=== PATIENT | female | born 1945 | race Caucasian/White ===

== ENCOUNTER 2018-01-28 07:02 | Day surgery (SDC) | payer MEDICARE, SELFPAY ==
[2018-01-28] VITALS (9 sets, daily range): BP systolic 94–121; BP diastolic 57–71; PULSE 60–72; RESP 10–16; TEMP 36–36.8; O2SAT 92–99; BMI 20.9
--- NOTE | 2018-01-28 07:56 | SUR.PREOP ---
pt requested to take her indomethacin for headaches, dr guerrero notified and was ok with patient taking her medication with water at 0755
--- NOTE | 2018-01-28 08:36 | PM.HP.1 ---
History of Present Illness Date Patient Seen: 01/28/18 Time Patient Seen: 08:37 Chief complaint: [id number] COLONOSCOPY Narrative: Very pleasant 72-year-old lady who presents for a screening colonoscopy. She has a personal history of colon polyps and a family history of colon cancer. She denies any problems or symptoms related to the function of her GI tract other than chronic constipation which has been ongoing for many years. She reports that she needs colonoscopy as part of a health maintenance program. Patient History Medical History CAD (coronary artery disease) (Acute) Colon polyps (Chronic ~1999) Glaucoma (Chronic ~2009) Headache (Chronic ~1982) Hearing deficit (Chronic) Hearing loss (Chronic ~1970) Mumps (Resolved ~1955) Surgical History Anesthesia (Resolved) Status post placement of bare metal coronary artery stent (Resolved ~2015) History of tonsillectomy Status post colonoscopy Family & Social History Family History: Reviewed 01/28/18 by Bhargavi Caballero MD Social History: household members none lives independently Yes Tobacco & Substance use: Smoking Status Never smoker alcohol intake never Meds Home Medications Medication Instructions Recorded Confirmed Type nitroglycerin [Nitrostat] 0.4 mg SUBLINGUAL #0 tab 12/04/15 History aspirin 81 mg PO QDAY #30 tab 12/20/15 01/28/18 History losartan 25 mg PO QDAY #90 tab 02/02/17 01/28/18 Rx atorvastatin 40 mg PO HS #90 tab 06/02/17 01/28/18 Rx buspirone 7.5 mg PO BID #180 tab 06/05/17 01/28/18 Rx indomethacin 25 mg capsule 25 mg PO TIDCC #270 cap 01/22/18 01/28/18 Rx varicella-zoster glycoE [id number] 0.5 ml IM ONCE #1 each 01/22/18 01/22/18 Rx adj(PF) 50 mcg/0.5 mL IM susp, kit Allergies Allergy/AdvReac Type Severity Reaction Status Date / Time No Known Allergies Allergy Uncoded 08/12/17 12:59 Review of Systems Review of Systems All systems reviewed & are unremarkable except as noted in HPI and below Exam Vital Signs (past 8 hours): - 01/28/18 07:23 Temperature 97.9 F Pulse Rate 62 Respiratory Rate 16 Blood Pressure 121/71 Pulse Oximetry 99 Oxygen Delivery Method Room Air Narrative Exam Narrative: Very pleasant well-nourished well-developed lady in no distress HEENT: Normocephalic and atraumatic, pupils equal round reactive to light accommodation with anicteric sclera Lungs: Clear to auscultation bilaterally Heart: Regular rate and rhythm without murmur or gallop Abdomen: Soft, nontender, active bowel sounds Extremities: Warm well perfused Assessment & Plan Plan: Assessment/Plan Narrative: Very pleasant lady with a personal history of colon polyps and family history colon cancer. She presents today for screening colonoscopy. We discussed risks and benefits of the procedure the patient's crest desire to complete it today
[2018-01-28] MEDS: fentaNYL 250 MCG/5 ML INJ IV (09:05)
[2018-01-28] MEDS: MIDAZOLAM 5 MG/5 ML VIAL 8 MG IV (09:06)
--- NOTE | 2018-01-28 09:31 | SUR.PHASEI ---
Opens finally open spontaneously but falls asleep very quickly. Denied headache and stomach problems.
--- NOTE | 2018-01-28 11:01 | PM.OP.1 ---
Operative Date/Time/Diagnoses Date of procedure: 01/28/18 Time of procedure: 11:01 Pre-op diagnosis: Personal history of colon polyps Family history of colon cancer Post-op diagnosis: same Procedure & Clinicians Procedure: Colonoscopy to the cecum Same procedure as scheduled: Yes Indications: Last colonoscopy 5 years ago Surgeon: Bhargavi Caballero Anesthesia Type: Sedation (Versed 8 mg; fentanyl 200 mcg) Operative Notes Findings: 1. Poor prep 2. No polyps or mass lesions 3. No AV malformations 4. Tortuous, lax, and elongated colon consistent with chronic constipation 5. Minimal diverticulosis limited to the sigmoid region 6. Grade 1 internal hemorrhoids Closure Type: not applicable Specimen(s): none sent Procedure in detail: After obtaining informed consent, the patient was brought to the GI suite and placed in the left lateral decubitus position on the examination table. After placement of appropriate monitors, the patient was given incremental doses of Versed and Fentanyl until an appropriate level of sedation was achieved. A time out was held per SCOAP protocol. A digital rectal examination was performed and did not reveal any masses or obstructing lesions. The colonoscope was gently passed into the patient's anus and the entire colon navigated to the level of the cecum with significant difficulty due to colon tortuosity and laxity. Multiple changes of position were required to reach the cecum. Once in the cecum, the scope was withdrawn being sure to go before and beyond all mucosal folds and prominences and get an excellent examination. The findings are noted above. At the level of the rectal vault, the scope was retroflexed and the internal anal canal was examined. The scope was straightened and air aspirated from the colon. The instrument was removed from the patient's body and the procedure was concluded. The patient was allowed to awaken from sedation without difficulty and taken to the post-anesthesia care unit in good condition. Complications: none Condition: stable Disposition: PACU Plan for aftercare: 1. Discharge to home 2. Plan for next colonoscopy in 5 years or as clinically indicated
== END 2018-01-28 10:30 | disposition home or self-care (01) ==
PROVIDERS: Family Provider Family Medicine; PCP Family Medicine; Visit Provider Surgery
PROC: 0DJD8ZZ Inspection of Lower Intestinal Tract, Via Natural or Artificial Opening Endoscopic (ICD-10-PCS; CPT 45378; principal; 2018-01-28 07:45)
DX: Z86.010 Personal history of colon polyps (principal); K57.30 Diverticulosis of large intestine without perforation or abscess without bleeding; K64.0 First degree hemorrhoids; Z80.0 Family history of malignant neoplasm of digestive organs; I25.10 Atherosclerotic heart disease of native coronary artery without angina pectoris
CPT/HCPCS: G0105; J2250; J3010

== ENCOUNTER → 2018-02-04 08:36 | Outpatient (CLI) | payer MEDICARE, SELFPAY ==
[2018-02-04 09:14] LABS: Add Manual Diff / Slide Review NO; Basophils Percent Auto 1.1 % (0-2); Eosinophils Percent Auto 2.4 % (2-4); Hematocrit 44.6 % (36-46); Hemoglobin 15.6 g/dL (12.0-16.0); Lymphocytes Percent Auto 29.4 % (25-40); Mean Corpuscular HGB Conc 35.1 % (30-36); Mean Corpuscular Volume 91.4 fL (80-100); Monocytes Percent Auto 7.8 % (3-14); Neutrophils Absolute Auto 4000 /uL (3000-5900); Neutrophils Percent Auto 59.3 % (50-75); Platelet Count 201 X10^3/uL (150-400); Red Blood Cell Count 4.88 X10^6/uL (4.0-5.2); Red Cell Distribution Width 13.4 % (11.6-14.8); White Blood Cell Count 6.8 X10^3/uL (4.5-11.0)
[2018-02-04 09:50] LABS: Alanine Aminotransferase 38 IU/L (9-52); Albumin 4.7 g/dL (3.5-5.0); Alkaline Phosphatase 62 U/L (38-126); Aspartate Aminotransferase 30 IU/L (14-36); Bilirubin Total 0.7 mg/dL (0.2-1.3); Blood Urea Nitrogen 20 mg/dL (7-17); Carbon Dioxide 33 mmol/L (22-32); Chloride 97 mmol/L (98-107); Cholesterol 139 mg/dL (140-199); Estimated Glomerular Filt Rate > 60.0 mL/min (>60); Globulin 2.4 g/dL (1.7-4.1); Glucose 104 mg/dL (80-110); HDL Cholesterol 72 mg/dL (40-60); HEMOLYSIS < 15 (0-50); LDL Cholesterol Calculated 58 mg/dL (<100); Potassium 5.2 mmol/L (3.4-5.1); Sodium 139 mmol/L (137-145); Total Protein 7.1 g/dL (6.3-8.2); Triglycerides 46 mg/dL (35-150)
== END ==
PROVIDERS: PCP Family Medicine; Visit Provider Family Medicine
DX: I25.10 Atherosclerotic heart disease of native coronary artery without angina pectoris (principal)
CPT/HCPCS: 36415; 80053; 80061; 85025

== ENCOUNTER → 2018-03-11 09:03 | Outpatient (CLI) | payer MEDICARE, SELFPAY ==
--- NOTE | 2018-03-11 09:05 | DI.MG.S_ITS ---
BILATERAL DIGITAL SCREENING MAMMOGRAM 3D/2D WITH CAD: 03/11/2018 CLINICAL: Routine screening. Family history of breast cancer. Comparison is made to exams dated: 12/18/2016 mammogram, 11/09/2014 mammogram, and 09/02/2012 mammogram - [facility]. The tissue of both breasts is extremely dense, which lowers the sensitivity of mammography. Current study was also evaluated with a Computer Aided Detection (CAD) system. There are benign calcifications in both breasts. No significant masses, calcifications, or other findings are seen in either breast. There has been no significant interval change. IMPRESSION: There is no mammographic evidence of malignancy. A 1 year screening mammogram is recommended. This exam was interpreted at Station ID: [id number]. NOTE: For mammograms, a report in lay terms will be sent to the patient. Approximately 15% of breast malignancies will not be visualized mammographically. In the management of a palpable breast mass, a negative mammogram must not discourage biopsy of a clinically suspicious lesion. Electronically Signed By: Rogerio landin/radha:03/11/2018 17:09:52 letter sent: Normal Exam ACR BI-RADS Category 2: Benign Finding(s) 3342F
== END ==
PROVIDERS: Family Provider Family Medicine; PCP Family Medicine; Visit Provider Family Medicine
DX: Z12.31 Encounter for screening mammogram for malignant neoplasm of breast (principal); Z80.3 Family history of malignant neoplasm of breast; Z13.820 Encounter for screening for osteoporosis; M85.851 Other specified disorders of bone density and structure, right thigh; Z78.0 Asymptomatic menopausal state; I25.10 Atherosclerotic heart disease of native coronary artery without angina pectoris
CPT/HCPCS: 77063; 77067; 77080

== ENCOUNTER 2018-11-25 11:32 | Emergency (ER) | payer MEDICARE, SELFPAY ==
[2018-11-25 11:35] VITALS: BP 160/81; PULSE 74; RESP 18; TEMP 36.7; O2SAT 98; BMI 22.4
[2018-11-25 11:43] VITALS: BP 151/78; BP 160/81; PULSE 74
--- NOTE | 2018-11-25 11:43 | DI.RAD.S_ITS ---
PROCEDURE: XR CHEST 1V INDICATIONS: chest pain TECHNIQUE: One view of the chest was acquired. COMPARISON: [facility], , CHEST 1 VIEW, 11/20/2015, 14:04. FINDINGS: Surgical changes and devices: None. Lungs and pleura: Lungs are clear. No pleural effusions or pneumothorax. Mediastinum: Mediastinal contours appear normal. Heart size is normal. Bones and chest wall: No suspicious bony lesions. Overlying soft tissues appear unremarkable. IMPRESSION: Normal for age, source of current chest pain symptoms is not seen. Dictated by: Jovanny Michael M.D. on 11/25/2018 at 12:02 Approved by: Jovanny Michael M.D. on 11/25/2018 at 12:02
--- NOTE | 2018-11-25 11:49 | ED.CHESTPAIN ---
HPI - Chest Pain General Chief Complaint: Chest Pain Stated Complaint: RN states cardiac symptoms Time Seen by Provider: 11/25/18 11:46 Source: patient Mode of arrival: ambulatory Limitations: no limitations History of Present Illness HPI narrative: Patient is a 73-year-old female who presents with bilateral arm numbness sometimes. She says it starts in her hands and moves after her shoulders in both sides. She is extremely worried because that she has had a heart attack in the past and she feels like a heart attack might be coming on. This has been ongoing for the last 2 weeks. At no time did she ever have any chest pain. When she had her previous heart attack she felt like there was a vise around her chest, this is completely different. she denies any shortness of breath with exertion, weakness, speech difficulty. she came in for to get checked out. Related Data Home Medications Medication Instructions Recorded Confirmed nitroglycerin [Nitrostat] 0.4 mg SUBLINGUAL PRN PRN #0 tab 12/04/15 11/25/18 aspirin 81 mg PO MOWEFR #30 tab 12/20/15 11/25/18 CoQ-10 1 cap PO DAILY 11/25/18 11/25/18 atorvastatin 40 mg PO BEDTIME 11/25/18 11/25/18 buspirone 5 mg PO QAM 11/25/18 11/25/18 buspirone 10 mg PO QPM 11/25/18 11/25/18 vitamin E 1 cap PO DAILY 11/25/18 11/25/18 Previous Rx's Medication Instructions Recorded indomethacin 25 mg capsule 25 mg PO TIDCC #270 cap 01/22/18 varicella-zoster glycoE [id number] 0.5 ml IM ONCE #1 each 01/22/18 adj(PF) 50 mcg/0.5 mL IM susp, kit losartan 25 mg tablet 25 mg PO DAILY #3 tab 02/04/18 Allergies Allergy/AdvReac Type Severity Reaction Status Date / Time No Known Allergies Allergy Uncoded 11/25/18 11:52 Review of Systems Review of Systems GENERAL: Denies chills, fatigue, malaise, fever, sweats, travel HEENT: Denies sinus pain, ear pain, sore throat, difficulty swallowing, neck pain RESPIRATORY: Denies dyspnea, cough, wheezing, hemoptysis, sputum. CARDIOVASCULAR: Denies chest pain, palpitations, orthopnea, edema GASTROINTESTINAL: Denies nausea, vomiting, abdominal pain, diarrhea, constipation, melena. : Denies dysuria, frequency, incontinence, hematuria, urinary retention, flank pain. MUSCULOSKELETAL: Denies weakness, joint pain, or bony pain SKIN: No rash, no erythema, no pruritus NEUROLOGIC: Tingling in both arms see HPI Denies weakness, dizziness, headache, numbness, change in speech, confusion PSYCHIATRIC: No concerning psychosocial issues. 12 point review of systems is negative except for those stated above and HPI [facility] Medical History CAD (coronary artery disease) (Acute) Colon polyps (Chronic ~1999) Glaucoma (Chronic ~2009) Headache (Chronic ~1982) Hearing deficit (Chronic) Hearing loss (Chronic ~1970) Mumps (Resolved ~1955) Social History marital status: household members: none lives independently: Yes education level: college occupational status: other (retired) Smoking Status: Never smoker alcohol intake: never substance use type: does not use Exam Initial Vital Signs Initial Vital Signs: Vital Signs Temperature 98.1 F 11/25/18 11:35 Pulse Rate 74 11/25/18 11:35 Respiratory Rate 18 11/25/18 11:35 Blood Pressure 160/81 H 11/25/18 11:35 Pulse Oximetry 98 11/25/18 11:35 GENERAL: Well-appearing, well-nourished and in no acute distress. HEENT: Head atraumatic,EOMI, pupils reactive, face symmetric, moist mucous membranes CARDIOVASCULAR: Regular rate and rhythm without murmurs, rubs or gallops. RESPIRATORY: Breath sounds equal bilaterally, no wheezes rales or rhonchi. ABDOMEN: Soft, nontender. Normoactive bowel sounds all 4 quadrants. No guarding or rebound. : No CVA tenderness EXTREMITIES: Normal range of motion, no clubbing or edema. Neurovascularly intact NEUROLOGICAL: Alert and oriented x4.Normal gait and speech. Cranial nerves II through XII grossly intact. Mate Chief strength equal bilaterally. Good finger-nose good heel to earl. SKIN: Warm, dry, no laceration, no petechiae, no rashes or lesions. Scores HEART Score Heart Score history: Slightly Suspicious Heart Score EKG: Normal Heart Score Age: > or = 65 years old Heart Score risk factors: > 3 risk factors or hx of atherosclerotic disease Heart Score troponin: < or = to normal limit Heart Score Total: 4 NIH Stroke Scale Level of Conciousness: Alert, keenly responsive Ask month/age: Answers both questions correctly. Open/close eyes, close hand: Performs both tasks correctly Best gaze horizontal: Normal Visual cevallos: No visual loss Facial palsy: Normal symetrical movement Left arm drift: No drift for full 10 sec Right arm drift: No drift for full 10 sec Left leg drift: No drift for full 10 sec Right leg drift: No drift for full 10 sec Limb ataxia: Absent Sensory on face/arms/legs: Normal, no sensory loss Best language: No aphasia, normal Dysarthria: Normal Extinction or inattention: No abnormality Total NIH Stroke scale score: 0 Course Orders Ordered: ED Orders 11/25/18 11:43 XR chest 1V Stat Complete Blood Count AUTO DIFF Stat Comprehensive Metabolic Panel Stat Lipase Stat Partial Thromboplastin Time Stat Prothrombin Time INR Stat Troponin & CK Cardiac Panel Stat EKG-12 Lead Stat Vital Signs - 8 hr 11/25/18 11:35 11/25/18 11:43 11/25/18 12:00 Temperature 98.1 F Pulse Rate 74 74 65 Respiratory Rate 18 19 Blood Pressure 160/81 H Blood Pressure [Left Arm] 160/81 H Blood Pressure [Right Arm] 151/78 H 142/65 H Pulse Oximetry 98 96 11/25/18 12:52 Temperature 98.3 F Pulse Rate 67 Respiratory Rate 19 Blood Pressure 116/62 Blood Pressure [Left Arm] Blood Pressure [Right Arm] Pulse Oximetry 99 MDM - Chest Pain Lab Data Attestation: I reviewed the patient's lab results. Result diagrams: 11/25/18 11:43 11/25/18 11:43 Lab Results 11/25/18 11/25/18 11/25/18 Range/Units 11:43 11:43 11:43 WBC 7.1 (4.5-11.0) X10^3/uL RBC 4.77 (4.0-5.2) X10^6/uL Hgb 15.2 (12.0-16.0) g/dL Hct 43.9 (36-46) % MCV 92.1 (80-100) fL MCH 31.9 (26-34) PG MCHC 34.6 (30-36) % RDW 13.8 (11.6-14.8) % Plt Count 182 (150-400) X10^3/uL Neut % (Auto) 67.2 (50-75) % Lymph % (Auto) 24.3 L (25-40) % [place] % (Auto) 6.7 (3-14) % Eos % (Auto) 1.0 L (2-4) % Baso % (Auto) 0.8 (0-2) % Neut # (Auto) 4800 (3160-1779) /uL Lymph # (Auto) 1700 (3608-6854) /uL [place] # (Auto) 500 (0-900) /uL Eos # (Auto) 100 (0-450) /uL Baso # (Auto) 100 (0-100) /uL PT 11.6 (10.1-12.7) SECONDS INR 1.0 (0.9-1.3) APTT 29 (26.4-36.2) SECONDS Sodium 139 (137-145) mmol/L Potassium 4.3 (3.4-5.1) mmol/L Chloride 102 (98-107) mmol/L Carbon Dioxide 27 (22-32) mmol/L BUN 17 (7-17) mg/dL Creatinine 0.70 (0.52-1.04) mg/dL Estimated GFR > 60.0 (>60) mL/min BUN/Creatinine Ratio 24.3 H (6-22) Glucose 129 H (80-110) mg/dL Calcium 9.8 (8.4-10.2) mg/dL Total Bilirubin 0.7 (0.2-1.3) mg/dL AST 28 (14-36) IU/L ALT 34 (9-52) IU/L Alkaline Phosphatase 57 (38-126) U/L Total Creatine Kinase 67 (30-135) U/L CK-MB (CK-2) TNP CK-MB (CK-2) Rel Index TNP Troponin I < 0.012 (0.01-0.034) ng/mL Total Protein 7.3 (6.3-8.2) g/dL Albumin 4.6 (3.5-5.0) g/dL Globulin 2.7 (1.7-4.1) g/dL Albumin/Globulin Ratio 1.7 (1.0-2.8) Lipase 224 (23-300) U/L Imaging Data Chest x-ray: Radiologist's impression: PROCEDURE: XR CHEST 1V INDICATIONS: chest pain TECHNIQUE: One view of the chest was acquired. COMPARISON: [facility], , CHEST 1 VIEW, 11/20/2015, 14:04. FINDINGS: Surgical changes and devices: None. Lungs and pleura: Lungs are clear. No pleural effusions or pneumothorax. Mediastinum: Mediastinal contours appear normal. Heart size is normal. Bones and chest wall: No suspicious bony lesions. Overlying soft tissues appear unremarkable. IMPRESSION: Normal for age, source of current chest pain symptoms is not seen. Dictated by: Jovanny Michael M.D. on 11/25/2018 at 12:02 ECG Data Attestation: I personally reviewed and interpreted this ECG as follows: Prior ECG tracings: available for review Interpretation: Normal sinus rhythm rate 69 P are interval 120 be improved from previous there are no to ST elevations or T-wave inversion. Previously Seen T-wave inversions in precordial leads. MDM Narrative Medical decision making narrative: At this time patient's symptoms really are not concerning for cardiac or stroke. Her EKG is significantly improved from when she did have her [place]. She has a negative troponin with symptoms ongoing for 2 weeks. I did suggest that she touch base with her neonatal nurse practitioner and have a stress test. She has been taking her medications regularly. At this time I see no indication for any further imaging or workup Discharge Plan Departure Patient Disposition: Home Clinical Impression: Atypical chest pain Discharge Date/Time: 11/25/18 12:54 Interventions: ED Discharge Assessment Last Done: 11/25/18 12:52 Instructions: DI for Atypical Chest Pain Activity Restrictions/Additional Instructions: *You have been diagnosed with atypical chest pain *What to do: At this time her blood EKG and chest x-ray are all reassuring. However I still recommend that he follow up with her PCP and her neonatal nurse practitioner for further evaluation and possible further cardiac testing. *Continue to take medications as directed *Follow up with your primary care provider in 2-3 days *Return to ER if you should have chest pain, shortness of breath, heart palpitation or any new, worsening or concerning symptoms Prescriptions: No Action nitroglycerin [Nitrostat] 0.4 MG tablet, sublingual 0.4 mg Sublingual PRN PRN (Reason: Chest Pain) Qty: 0 RF: 0 aspirin 81 MG tablet,delayed release (DR/EC) 81 mg PO MOWEFR Qty: 30 RF: 0 losartan 25 mg tablet 25 mg PO DAILY Qty: 3 RF: 0 varicella-zoster [id number] (PF) [Shingrix (PF)] 50 mcg/0.5 mL suspension for reconstitution 0.5 ml IM ONCE Qty: 1 RF: 1 indomethacin 25 mg capsule 25 mg PO TIDCC Qty: 270 RF: 3 buspirone 15 mg tablet 5 mg PO QAM RF: 0 atorvastatin 40 mg tablet 40 mg PO BEDTIME RF: 0 buspirone 15 mg tablet 10 mg PO QPM RF: 0 CoQ-10 1 cap PO DAILY RF: 0 vitamin E 1 cap PO DAILY RF: 0 Referrals: Jean Marie Marrufo MD [Non-Staff] - Trudy Salvador DO [Primary Care Provider] -
[2018-11-25 11:52] LABS: Add Manual Diff / Slide Review NO; Basophils Absolute Auto 100 /uL (0-100); Basophils Percent Auto 0.8 % (0-2); Eosinophils Absolute Auto 100 /uL (0-450); Hematocrit 43.9 % (36-46); Hemoglobin 15.2 g/dL (12.0-16.0); Lymphocytes Absolute Auto 1700 /uL (1100-4500); Lymphocytes Percent Auto 24.3 % (25-40); Mean Corpuscular HGB Conc 34.6 % (30-36); Mean Corpuscular Hemoglobin 31.9 PG (26-34); Mean Corpuscular Volume 92.1 fL (80-100); Monocytes Absolute Auto 500 /uL (0-900); Monocytes Percent Auto 6.7 % (3-14); Neutrophils Absolute Auto 4800 /uL (1500-7000); Neutrophils Percent Auto 67.2 % (50-75); Platelet Count 182 X10^3/uL (150-400); Red Blood Cell Count 4.77 X10^6/uL (4.0-5.2); Red Cell Distribution Width 13.8 % (11.6-14.8); White Blood Cell Count 7.1 X10^3/uL (4.5-11.0)
--- NOTE | 2018-11-25 11:56 | ED_ITS ---
HPI - Chest Pain General Chief Complaint: Chest Pain Stated Complaint: RN states cardiac symptoms Time Seen by Provider: 11/25/18 11:46 Source: patient Mode of arrival: ambulatory Limitations: no limitations History of Present Illness HPI narrative: Patient is a 73-year-old female who presents with bilateral arm n umbness sometimes. She says it starts in her hands and moves after her shoulders in both sides. She is extremely worried because that she has had a heart attack in the past and she feels like a heart attack might be coming on. This has been ongoing for the last 2 weeks. At no time did she ever have any chest pain. When she had her previous heart attack she felt like there was a vise around her chest, this is completely different. she denies any shortness of breath with exertion, weakness, speech difficulty. she came in for to get checked out. Related Data Home Medications Medication Instructions Recorded Confirmed nitroglycerin [Nitrostat] 0.4 mg SUBLINGUAL PRN PRN #0 tab 12/04/15 11/25/18 aspirin 81 mg PO MOWEFR #30 tab 12/20/15 11/25/18 CoQ-10 1 cap PO DAILY 11/25/18 11/25/18 atorvastatin 40 mg PO BEDTIME 11/25/18 11/25/18 buspirone 5 mg PO QAM 11/25/18 11/25/18 buspirone 10 mg PO QPM 11/25/18 11/25/18 vitamin E 1 cap PO DAILY 11/25/18 11/25/18 Previous Rx's Medication Instructions Recorded indomethacin 25 mg capsule 25 mg PO TIDCC #270 cap 01/22/18 varicella-zoster glycoE [id number] 0.5 ml IM ONCE #1 each 01/22/18 adj(PF) 50 mcg/0.5 mL IM susp, kit losartan 25 mg tablet 25 mg PO DAILY #3 tab 02/04/18 Allergies Allergy/AdvReac Type Severity Reaction Status Date / Time No Known Allergies Allergy Uncoded 11/25/18 11:52 Review of Systems Review of Systems GENERAL: Denies chills, fatigue, malaise, fever, sweats, travel HEENT: Denies sinus pain, ear pain, sore throat, difficulty swallowing, neck pain RESPIRATORY: Denies dyspnea, cough, wheezing, hemoptysis, sputum. CARDIOVASCULAR: Denies chest pain, palpitations, orthopnea, edema GASTROINTESTINAL: Denies nausea, vomiting, abdominal pain, diarrhea, constipation, melena. : Denies dysuria, frequency, incontinence, hematuria, urinary retention, flank pain. MUSCULOSKELETAL: Denies weakness, joint pain, or bony pain SKIN: No rash, no erythema, no pruritus NEUROLOGIC: Tingling in both arms see HPI Denies weakness, dizziness, headache, numbness, change in speech, confusion PSYCHIATRIC: No concerning psychosocial issues. 12 point review of systems is negative except for those stated above and HPI FORMERLY [facility], [facility] Medical History CAD (coronary artery disease) (Acute) Colon polyps (Chronic ~1999) Glaucoma (Chronic ~2009) Headache (Chronic ~1982) Hearing deficit (Chronic) Hearing loss (Chronic ~1970) Mumps (Resolved ~1955) Social History marital status: household members: none lives independently: Yes education level: college occupational status: other (retired) Smoking Status: Never smoker alcohol intake: never substance use type: does not use Exam Initial Vital Signs Initial Vital Signs: Vital Signs Temperature 98.1 F 11/25/18 11:35 Pulse Rate 74 11/25/18 11:35 Respiratory Rate 18 11/25/18 11:35 Blood Pressure 160/81 H 11/25/18 11:35 Pulse Oximetry 98 11/25/18 11:35 GENERAL: Well-appearing, well-nourished and in no acute distress. HEENT: Head atraumatic,EOMI, pupils reactive, face symmetric, moist mucous membranes CARDIOVASCULAR: Regular rate and rhythm without murmurs, rubs or gallops. RESPIRATORY: Breath sounds equal bilaterally, no wheezes rales or rhonchi. ABDOMEN: Soft, nontender. Normoactive bowel sounds all 4 quadrants. No guarding or rebound. : No CVA tenderness EXTREMITIES: Normal range of motion, no clubbing or edema. Neurovascularly intact NEUROLOGICAL: Alert and oriented x4.Normal gait and speech. Cranial nerves II through XII grossly intact. Crossword Puzzle Maker strength equal bilaterally. Good finger-nose good heel to earl. SKIN: Warm, dry, no laceration, no petechiae, no rashes or lesions. Scores HEART Score Heart Score history: Slightly Suspicious Heart Score EKG: Normal Heart Score Age: > or = 65 years old Heart Score risk factors: > 3 risk factors or hx of atherosclerotic disease Heart Score troponin: < or = to normal limit Heart Score Total: 4 NIH Stroke Scale Level of Conciousness: Alert, keenly responsive Ask month/age: Answers both questions correctly. Open/close eyes, close hand: Performs both tasks correctly Best gaze horizontal: Normal Visual cevallos: No visual loss Facial palsy: Normal symetrical movement Left arm drift: No drift for full 10 sec Right arm drift: No drift for full 10 sec Left leg drift: No drift for full 10 sec Right leg drift: No drift for full 10 sec Limb ataxia: Absent Sensory on face/arms/legs: Normal, no sensory loss Best language: No aphasia, normal Dysarthria: Normal Extinction or inattention: No abnormality Total NIH Stroke scale score: 0 Course Orders Ordered: ED Orders 11/25/18 11:43 XR chest 1V Stat Complete Blood Count AUTO DIFF Stat Comprehensive Metabolic Panel Stat Lipase Stat Partial Thromboplastin Time Stat Prothrombin Time INR Stat Troponin & CK Cardiac Panel Stat EKG-12 Lead Stat Vital Signs - 8 hr 11/25/18 11:35 11/25/18 11:43 11/25/18 12:00 Temperature 98.1 F Pulse Rate 74 74 65 Respiratory Rate 18 19 Blood Pressure 160/81 H Blood Pressure [Left Arm] 160/81 H Blood Pressure [Right Arm] 151/78 H 142/65 H Pulse Oximetry 98 96 11/25/18 12:52 Temperature 98.3 F Pulse Rate 67 Respiratory Rate 19 Blood Pressure 116/62 Blood Pressure [Left Arm] Blood Pressure [Right Arm] Pulse Oximetry 99 MDM - Chest Pain Lab Data Attestation: I reviewed the patient's lab results. Result diagrams: 11/25/18 11:43 11/25/18 11:43 Lab Results 11/25/18 11/25/18 11/25/18 Range/Units 11:43 11:43 11:43 WBC 7.1 (4.5-11.0) X10^3/uL RBC 4.77 (4.0-5.2) X10^6/uL Hgb 15.2 (12.0-16.0) g/dL Hct 43.9 (36-46) % MCV 92.1 (80-100) fL MCH 31.9 (26-34) PG MCHC 34.6 (30-36) % RDW 13.8 (11.6-14.8) % Plt Count 182 (150-400) X10^3/uL Neut % (Auto) 67.2 (50-75) % Lymph % (Auto) 24.3 L (25-40) % [place] % (Auto) 6.7 (3-14) % Eos % (Auto) 1.0 L (2-4) % Baso % (Auto) 0.8 (0-2) % Neut # (Auto) 4800 (1275-5403) /uL Lymph # (Auto) 1700 (5887-6727) /uL [place] # (Auto) 500 (0-900) /uL Eos # (Auto) 100 (0-450) /uL Baso # (Auto) 100 (0-100) /uL PT 11.6 (10.1-12.7) SECONDS INR 1.0 (0.9-1.3) APTT 29 (26.4-36.2) SECONDS Sodium 139 (137-145) mmol/L Potassium 4.3 (3.4-5.1) mmol/L Chloride 102 (98-107) mmol/L Carbon Dioxide 27 (22-32) mmol/L BUN 17 (7-17) mg/dL Creatinine 0.70 (0.52-1.04) mg/dL Estimated GFR > 60.0 (>60) mL/min BUN/Creatinine Ratio 24.3 H (6-22) Glucose 129 H (80-110) mg/dL Calcium 9.8 (8.4-10.2) mg/dL Total Bilirubin 0.7 (0.2-1.3) mg/dL AST 28 (14-36) IU/L ALT 34 (9-52) IU/L Alkaline Phosphatase 57 (38-126) U/L Total Creatine Kinase 67 (30-135) U/L CK-MB (CK-2) TNP CK-MB (CK-2) Rel Index TNP Troponin I < 0.012 (0.01-0.034) ng/mL Total Protein 7.3 (6.3-8.2) g/dL Albumin 4.6 (3.5-5.0) g/dL Globulin 2.7 (1.7-4.1) g/dL Albumin/Globulin Ratio 1.7 (1.0-2.8) Lipase 224 (23-300) U/L Imaging Data Chest x-ray: Radiologist's impression: PROCEDURE: XR CHEST 1V INDICATIONS: chest pain TECHNIQUE: One view of the chest was acquired. COMPARISON: [facility], , CHEST 1 VIEW, 11/20/2015, 14:04. FINDINGS: Surgical changes and devices: None. Lungs and pleura: Lungs are clear. No pleural effusions or pneumothorax. Mediastinum: Mediastinal contours appear normal. Heart size is normal. Bones and chest wall: No suspicious bony lesions. Overlying soft tissues appear unremarkable. IMPRESSION: Normal for age, source of current chest pain symptoms is not seen. Dictated by: Jovanny Michael M.D. on 11/25/2018 at 12:02 ECG Data Attestation: I personally reviewed and interpreted this ECG as follows: Prior ECG tracings: available for review Interpretation: Normal sinus rhythm rate 69 P are interval 120 be improved from previous there are no to ST elevations or T-wave inversion. Previously Seen T- wave inversions in precordial leads. MDM Narrative Medical decision making narrative: At this time patient's symptoms really are not concerning for cardiac or stroke. Her EKG is significantly improved from when she did have her IL. She has a negative troponin with symptoms ongoing for 2 weeks. I did suggest that she touch base with her charge gang weigher and have a stress test. She has been taking her medications regularly. At this time I see no indication for any further imaging or workup Discharge Plan Departure Patient Disposition: Home Clinical Impression: Atypical chest pain Discharge Date/Time: 11/25/18 12:54 Interventions: ED Discharge Assessment Last Done: 11/25/18 12:52 Instructions: DI for Atypical Chest Pain Activity Restrictions/Additional Instructions: *You have been diagnosed with atypical chest pain *What to do: At this time her blood EKG and chest x-ray are all reassuring. However I still recommend that he follow up with her PCP and her charge gang weigher for further evaluation and possible further cardiac testing. *Continue to take medications as directed *Follow up with your primary care provider in 2-3 days *Return to ER if you should have chest pain, shortness of breath, heart palpitation or any new, worsening or concerning symptoms Prescriptions: No Action nitroglycerin [Nitrostat] 0.4 MG tablet, sublingual 0.4 mg Sublingual PRN PRN (Reason: Chest Pain) Qty: 0 RF: 0 aspirin 81 MG tablet,delayed release (DR/EC) 81 mg PO MOWEFR Qty: 30 RF: 0 losartan 25 mg tablet 25 mg PO DAILY Qty: 3 RF: 0 varicella-zoster [id number] (PF) [Shingrix (PF)] 50 mcg/0.5 mL suspension for reconstitution 0.5 ml IM ONCE Qty: 1 RF: 1 indomethacin 25 mg capsule 25 mg PO TIDCC Qty: 270 RF: 3 buspirone 15 mg tablet 5 mg PO QAM RF: 0 atorvastatin 40 mg tablet 40 mg PO BEDTIME RF: 0 buspirone 15 mg tablet 10 mg PO QPM RF: 0 CoQ-10 1 cap PO DAILY RF: 0 vitamin E 1 cap PO DAILY RF: 0 Referrals: Jean Marie Marrufo MD [Non-Staff] - Trudy Salvador DO [Primary Care Provider] -
[2018-11-25 11:58] LABS: Prothrombin Time 11.6 SECONDS (10.1-12.7)
[2018-11-25 12:00] VITALS: BP 142/65; PULSE 65; RESP 19; O2SAT 96
[2018-11-25 12:00] LABS: PTT Partial Thromboplastin Tim 29 SECONDS (26.4-36.2)
[2018-11-25 12:07] LABS: Alanine Aminotransferase 34 IU/L (9-52); Albumin 4.6 g/dL (3.5-5.0); Albumin Globulin Ratio 1.7 (1.0-2.8); Alkaline Phosphatase 57 U/L (38-126); Aspartate Aminotransferase 28 IU/L (14-36); BUN Creatinine Ratio 24.3 (6-22); Bilirubin Total 0.7 mg/dL (0.2-1.3); Blood Urea Nitrogen 17 mg/dL (7-17); Calcium 9.8 mg/dL (8.4-10.2); Carbon Dioxide 27 mmol/L (22-32); Chloride 102 mmol/L (98-107); Creatine Kinase 67 U/L (30-135); Estimated Glomerular Filt Rate > 60.0 mL/min (>60); Globulin 2.7 g/dL (1.7-4.1); Glucose 129 mg/dL (80-110); HEMOLYSIS < 15 (0-50); Lipase 224 U/L (23-300); Potassium 4.3 mmol/L (3.4-5.1); Sodium 139 mmol/L (137-145); Total Protein 7.3 g/dL (6.3-8.2)
[2018-11-25 12:18] LABS: Troponin I < 0.012 ng/mL (0.01-0.034)
[2018-11-25 12:52] VITALS: BP 116/62; PULSE 67; RESP 19; TEMP 36.8; O2SAT 99
== END 2018-11-25 12:54 | disposition home or self-care (01) ==
PROVIDERS: Emergency Provider Emergency Medicine; Family Provider Family Medicine; PCP Family Medicine
DX: R07.89 Other chest pain (principal); I25.2 Old myocardial infarction
CPT/HCPCS: 36415; 36591; 71045; 80053; 82550; 83690; 84484; 85025; 85610; 85730; 93005; 99283; 99285

== ENCOUNTER → 2019-02-24 07:31 | Outpatient (CLI) | payer MEDICARE, SELFPAY ==
[2019-02-24 08:41] LABS: Add Manual Diff / Slide Review NO; Basophils Absolute Auto 100 /uL (0-100); Basophils Percent Auto 1.4 % (0-2); Eosinophils Absolute Auto 100 /uL (0-450); Eosinophils Percent Auto 1.7 % (2-4); Hemoglobin 15.3 g/dL (12.0-16.0); Lymphocytes Absolute Auto 1500 /uL (1100-4500); Lymphocytes Percent Auto 27.6 % (25-40); Mean Corpuscular HGB Conc 34.8 % (30-36); Mean Corpuscular Hemoglobin 32.5 PG (26-34); Mean Corpuscular Volume 93.4 fL (80-100); Monocytes Absolute Auto 400 /uL (0-900); Neutrophils Absolute Auto 3400 /uL (1500-7000); Neutrophils Percent Auto 61.3 % (50-75); Platelet Count 175 X10^3/uL (150-400); Red Blood Cell Count 4.71 X10^6/uL (4.0-5.2); Red Cell Distribution Width 13.7 % (11.6-14.8); White Blood Cell Count 5.5 X10^3/uL (4.5-11.0)
[2019-02-24 09:01] LABS: Alanine Aminotransferase 27 IU/L (9-52); Albumin 4.5 g/dL (3.5-5.0); Albumin Globulin Ratio 1.8 (1.0-2.8); Alkaline Phosphatase 52 U/L (38-126); Aspartate Aminotransferase 33 IU/L (14-36); BUN Creatinine Ratio 28.8 (6-22); Bilirubin Total 0.7 mg/dL (0.2-1.3); Blood Urea Nitrogen 23 mg/dL (7-17); Calcium 9.6 mg/dL (8.4-10.2); Carbon Dioxide 32 mmol/L (22-32); Chloride 99 mmol/L (98-107); Cholesterol 129 mg/dL (140-199); Estimated Glomerular Filt Rate > 60.0 mL/min (>60); Globulin 2.5 g/dL (1.7-4.1); Glucose 98 mg/dL (80-110); HDL Cholesterol 61 mg/dL (40-60); HEMOLYSIS < 15 (0-50); LDL Cholesterol Calculated 60 mg/dL (<100); Potassium 4.4 mmol/L (3.4-5.1); Sodium 138 mmol/L (137-145); Triglycerides 38 mg/dL (35-150)
== END ==
PROVIDERS: PCP Family Medicine; Visit Provider Family Medicine
DX: E78.5 Hyperlipidemia, unspecified (principal); I10 Essential (primary) hypertension
CPT/HCPCS: 36415; 80053; 80061; 84443; 85025

== ENCOUNTER → 2019-04-14 08:58 | Outpatient (CLI) | payer MEDICARE, SELFPAY ==
--- NOTE | 2019-04-14 08:59 | DI.MG.S_ITS ---
BILATERAL DIGITAL SCREENING MAMMOGRAM 3D/2D WITH CAD: 04/14/2019 CLINICAL: Routine screening. Family history of breast cancer. Comparison is made to exams dated: 12/18/2016 mammogram, 11/09/2014 mammogram, and 09/02/2012 mammogram - [facility]. The tissue of both breasts is extremely dense, which lowers the sensitivity of mammography. Current study was also evaluated with a Computer Aided Detection (CAD) system. There is an irregular asymmetry with a circumscribed margin in the left breast posterior depth central to the nipple seen on the craniocaudal view only. This is increased in size. No other significant masses, calcifications, or other findings are seen in either breast. IMPRESSION: INCOMPLETE: NEEDS ADDITIONAL IMAGING EVALUATION The irregular asymmetry in the left breast is indeterminate. Additional views with possible ultrasound are recommended. This exam was interpreted at Station ID: [id number]. NOTE: For mammograms, a report in lay terms will be sent to the patient. Approximately 15% of breast malignancies will not be visualized mammographically. In the management of a palpable breast mass, a negative mammogram must not discourage biopsy of a clinically suspicious lesion. Electronically Signed By: Swathi brewer/radha:04/14/2019 11:46:56 letter sent: Additional Imaging Needed ACR BI-RADS Category 0: Incomplete 3340F
== END ==
PROVIDERS: PCP Family Medicine; Visit Provider Family Medicine
DX: Z12.31 Encounter for screening mammogram for malignant neoplasm of breast (principal); Z80.3 Family history of malignant neoplasm of breast
CPT/HCPCS: 77063; 77067

== ENCOUNTER → 2019-05-12 12:44 | Outpatient (CLI) | payer MEDICARE, SELFPAY ==
--- NOTE | 2019-05-12 12:46 | DI.MG.S_ITS ---
UNILATERAL LEFT DIGITAL DIAGNOSTIC MAMMOGRAM 3D/2D WITH ADDITIONAL VIEWS: 05/12/2019 CLINICAL: Additional evaluation requested from prior study. Comparison is made to exams dated: 04/14/2019 mammogram, 03/11/2018 mammogram, and 12/18/2016 mammogram - [facility]. The tissue of left breast is extremely dense, which lowers the sensitivity of mammography. There is a 0.8 cm oval low density focal asymmetry with an indistinct and circumscribed margin in the left breast at 12 o'clock middle depth. No other significant masses or calcifications are seen in the breast. IMPRESSION: INCOMPLETE: NEEDS ADDITIONAL IMAGING EVALUATION The 0.8 cm oval low density focal asymmetry in the left breast is indeterminate. An ultrasound is recommended. This exam was interpreted at Station ID: [id number]. NOTE: For mammograms, a report in lay terms will be sent to the patient. Approximately 15% of breast malignancies will not be visualized mammographically. In the management of a palpable breast mass, a negative mammogram must not discourage biopsy of a clinically suspicious lesion. Electronically Signed By: Rogerio landin/radha:05/12/2019 13:19:27 ACR BI-RADS Category 0: Incomplete 3340F
--- NOTE | 2019-05-12 12:46 | DI.US.S_ITS ---
LIMITED ULTRASOUND OF LEFT BREAST: 05/12/2019 CLINICAL: Additional evaluation requested from prior study. Comparison is made to exams dated: 05/12/2019 mammogram, 04/14/2019 mammogram, 03/11/2018 mammogram, 12/18/2016 mammogram, and 11/09/2014 mammogram - [facility]. Color flow and real-time ultrasound of the left breast 6 o'clock and 12 o'clock regions were performed on the areas of interest. There is a benign 0.7 cm x 0.3 cm x 0.8 cm oval cyst in the left breast at 6 o'clock middle depth. This oval cyst is anechoic with a well-defined boundary and posterior acoustic enhancement. This likely correlates with mammography findings. Color flow imaging demonstrates that there is no vascularity present. IMPRESSION: BENIGN There is no sonographic evidence of malignancy. The 0.7 cm x 0.3 cm x 0.8 cm oval cyst in the left breast is consistent with a simple cyst and is benign. A 1 year screening mammogram is recommended. This exam was interpreted at Station ID: [id number]. Electronically Signed By: Rogerio Olivas M.D. ddjaya/:05/12/2019 17:03:46 letter sent: Normal Exam Ultrasound BI-RADS: 2 Benign
== END ==
PROVIDERS: PCP Family Medicine; Visit Provider Family Medicine
DX: R92.8 Other abnormal and inconclusive findings on diagnostic imaging of breast (principal); N60.02 Solitary cyst of left breast
CPT/HCPCS: 76642; 77065; G0279

== ENCOUNTER → 2020-02-21 08:03 | Outpatient (CLI) | payer MEDICARE, SELFPAY ==
[2020-02-21 09:03] LABS: Add Manual Diff / Slide Review NO; Basophils Absolute Auto 100 /uL (0-100); Basophils Percent Auto 1.3 % (0-2); Eosinophils Absolute Auto 100 /uL (0-450); Eosinophils Percent Auto 2.6 % (2-4); Hematocrit 43.2 % (36-46); Hemoglobin 14.9 g/dL (12.0-16.0); Lymphocytes Absolute Auto 1600 /uL (1100-4500); Lymphocytes Percent Auto 30.5 % (25-40); Mean Corpuscular HGB Conc 34.5 % (30-36); Mean Corpuscular Hemoglobin 32.6 PG (26-34); Mean Corpuscular Volume 94.7 fL (80-100); Monocytes Absolute Auto 500 /uL (0-900); Neutrophils Absolute Auto 3100 /uL (1500-7000); Neutrophils Percent Auto 56.6 % (50-75); Platelet Count 156 X10^3/uL (150-400); Red Blood Cell Count 4.56 X10^6/uL (4.0-5.2); Red Cell Distribution Width 13.6 % (11.6-14.8); White Blood Cell Count 5.4 X10^3/uL (4.5-11.0)
[2020-02-21 09:09] LABS: Creatinine Urine Random 67.8 mg/dL
[2020-02-21 09:16] LABS: Microalbumin Urine Random < 0.6 mg/dL (0-1.6)
[2020-02-21 09:28] LABS: Alanine Aminotransferase 24 IU/L (<35); Albumin 4.3 g/dL (3.5-5.0); Albumin Globulin Ratio 1.6 (1.0-2.8); Alkaline Phosphatase 61 U/L (38-126); Aspartate Aminotransferase 35 IU/L (14-36); BUN Creatinine Ratio 33.3 (6-22); Bilirubin Total 0.8 mg/dL (0.2-1.3); Blood Urea Nitrogen 24 mg/dL (7-17); Calcium 9.3 mg/dL (8.4-10.2); Carbon Dioxide 33 mmol/L (22-32); Chloride 101 mmol/L (98-107); Cholesterol 128 mg/dL (140-199); Estimated Glomerular Filt Rate > 60.0 mL/min (>60); Globulin 2.7 g/dL (1.7-4.1); Glucose 96 mg/dL (80-110); HDL Cholesterol 63 mg/dL (40-60); HEMOLYSIS < 15 (0-50); LDL Cholesterol Calculated 54 mg/dL (<100); Potassium 3.8 mmol/L (3.4-5.1); Sodium 137 mmol/L (137-145); Triglycerides 56 mg/dL (35-150)
== END ==
PROVIDERS: PCP Family Medicine; Referring Provider Family Medicine; Visit Provider Family Medicine
DX: E78.5 Hyperlipidemia, unspecified (principal); I10 Essential (primary) hypertension; I25.10 Atherosclerotic heart disease of native coronary artery without angina pectoris
CPT/HCPCS: 36415; 80053; 80061; 82043; 82570; 85025

== ENCOUNTER → 2020-05-15 09:29 | Outpatient (CLI) | payer MEDICARE, SELFPAY ==
--- NOTE | 2020-05-15 09:33 | DI.MG.S_ITS ---
BILATERAL DIGITAL SCREENING MAMMOGRAM 3D/2D WITH CAD: 05/15/2020 CLINICAL: Routine screening. Family history of breast cancer. Comparison is made to exams dated: 04/14/2019 mammogram, 03/11/2018 mammogram, 12/18/2016 mammogram, and 05/12/2019 mammogram - [facility]. The tissue of both breasts is extremely dense, which lowers the sensitivity of mammography. Current study was also evaluated with a Computer Aided Detection (CAD) system. No significant masses, calcifications, or other findings are seen in either breast. There has been no significant interval change. IMPRESSION: NEGATIVE There is no mammographic evidence of malignancy. A 1 year screening mammogram is recommended. This exam was interpreted at Station ID: [id number]. NOTE: For mammograms, a report in lay terms will be sent to the patient. Approximately 15% of breast malignancies will not be visualized mammographically. In the management of a palpable breast mass, a negative mammogram must not discourage biopsy of a clinically suspicious lesion. Electronically Signed By: Masood posada/radha:05/15/2020 11:49:31 letter sent: Normal Exam ACR BI-RADS Category 1: Negative 3341F
== END ==
PROVIDERS: PCP Family Medicine; Referring Provider Family Medicine; Visit Provider Family Medicine
DX: Z12.31 Encounter for screening mammogram for malignant neoplasm of breast (principal); Z80.3 Family history of malignant neoplasm of breast; Z13.820 Encounter for screening for osteoporosis; M85.852 Other specified disorders of bone density and structure, left thigh; Z78.0 Asymptomatic menopausal state
CPT/HCPCS: 77063; 77067; 77080

== ENCOUNTER → 2021-03-14 11:02 | Outpatient (CLI) | payer MEDICARE, SELFPAY ==
[2021-03-14 13:12] LABS: Alanine Aminotransferase 28 IU/L (<35); Albumin 4.5 g/dL (3.5-5.0); Albumin Globulin Ratio 1.9 (1.0-2.8); Alkaline Phosphatase 49 U/L (38-126); Aspartate Aminotransferase 37 IU/L (14-36); BUN Creatinine Ratio 32.4 (6-22); Bilirubin Total 0.6 mg/dL (0.2-1.3); Blood Urea Nitrogen 23 mg/dL (7-17); Calcium 9.7 mg/dL (8.4-10.2); Carbon Dioxide 30 mmol/L (22-32); Chloride 99 mmol/L (98-107); Estimated Glomerular Filt Rate > 60.0 mL/min (>60); Globulin 2.4 g/dL (1.7-4.1); Glucose 74 mg/dL (80-110); HEMOLYSIS < 15 (0-50); Potassium 4.2 mmol/L (3.4-5.1); Sodium 137 mmol/L (137-145); Total Protein 6.9 g/dL (6.3-8.2)
[2021-03-14 13:44] LABS: TSH w/ Reflex to FT4 0.83 uIU/mL (0.47-4.68)
== END ==
PROVIDERS: PCP Family Medicine; Referring Provider Family Medicine; Visit Provider Family Medicine
DX: I10 Essential (primary) hypertension (principal); E01.0 Iodine-deficiency related diffuse (endemic) goiter
CPT/HCPCS: 36415; 80053; 84443

== ENCOUNTER → 2021-04-11 12:19 | Outpatient (CLI) | payer MEDICARE, SELFPAY ==
--- NOTE | 2021-04-11 12:21 | DI.US.S_ITS ---
PROCEDURE: US THYROID INDICATIONS: THYROMEGALY VERSUS NECK MASS TECHNIQUE: Real-time scanning was performed of the thyroid gland, with image documentation. COMPARISON: None. FINDINGS: Right: Thyroid lobe measures 7.9 x 3.7 x 3.5 cm, and is heterogeneous in echotexture. Left: Thyroid lobe measures 7.4 x 4.4 x 3.9 cm, and is heterogeneous in echotexture. Isthmus: 2.2 cm thick. Nodule number: 1 Location: Right superior Size: 1.1 x 1 x 1 cm. Composition: Solid Echogenicity: Isoechoic Shape: wider than tall. Margins: Smooth Echogenic foci: None. Total points: 3 ACR TI-RADS category: TR 3, mildly suspicious IMPRESSION: 1. Enlarged heterogeneous thyroid gland. 2. Right thyroid nodule measuring 1.1 cm, TR 3, mildly suspicious. No imaging follow-up is required for this nodule. ACR TI-RADS definitions and recommendations: TI-RADS 1 (benign): 0 points. FNA not needed. TI-RADS 2 (not suspicious): 2 points. FNA not needed. TI-RADS 3 (mildly suspicious): 3 points. * FNA if 2.5 cm or larger, follow up if 1.5 cm or larger (at 1, 3, and 5 years). TI-RADS 4 (moderately suspicious): 4-6 points. * FNA if 1.5 cm or larger, follow up if 1 cm or larger (at 1, 2, 3, and 5 years). TI-RADS 5 (highly suspicious): 7 points or more. * FNA if 1 cm or larger, follow up if 0.5 cm or larger (every year for 5 years). Dictated by: Gold Santos M.D. on 04/11/2021 at 13:56 Approved by: Gold Santos M.D. on 04/11/2021 at 14:00
== END ==
PROVIDERS: PCP Family Medicine; Referring Provider Family Medicine; Visit Provider Family Medicine
DX: E01.0 Iodine-deficiency related diffuse (endemic) goiter (principal)
CPT/HCPCS: 76536

== ENCOUNTER → 2021-05-22 12:24 | Outpatient (CLI) | payer MEDICARE, SELFPAY ==
--- NOTE | 2021-05-22 12:28 | DI.RAD.S_ITS ---
PROCEDURE: FL BARIUM SWALLOW W AIR COMPARISON: [facility], , US THYROID, 04/11/2021, 12:37. INDICATIONS: fullness in throat, trouble swallowing Technique: Routine double-contrast esophagram was performed. After administration of oral effervescent granules, oral contrast was administered and imaging of the patient's esophageal motility was observed. Parts Advisor images were acquired. Patient was then placed in recumbent positions for single contrast phase of the examination. A standard barium tablet was also administered. FINDINGS: There was abnormal esophageal motility with multiple episodes of tertiary contractions/spasms resulting in retrograde flow of oral contrast as well as delayed transit of oral contrast into the stomach. Patient was able to pass a standard barium tablet without difficulty. No extrinsic compression noted at the level of the thyroid. No evidence for gastroesophageal reflux could be elicited with stress maneuvers. There is normal appearance of esophageal and gastric mucosa. No evidence for suspicious intraluminal mass, strictures, or extra luminal mass effect. There is a small hiatal hernia. IMPRESSION: 1. 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 No evidence for gastroesophageal reflux with stress maneuvers. 2. Small hiatal hernia. 3. Unremarkable appearance of the esophageal and gastric mucosa without strictures, intraluminal mass, or extrinsic compression. Specifically, no mass effect noted near the level of the thyroid. Dictated by: Giuseppe Mendoza M.D. on 05/22/2021 at 18:06 Approved by: Giuseppe Mendoza M.D. on 05/22/2021 at 18:10
== END ==
PROVIDERS: PCP Family Medicine; Referring Provider Family Medicine; Visit Provider Family Medicine
DX: R13.10 Dysphagia, unspecified (principal); K22.4 Dyskinesia of esophagus; K44.9 Diaphragmatic hernia without obstruction or gangrene
CPT/HCPCS: 74221

== ENCOUNTER → 2021-06-06 10:42 | Outpatient (CLI) | payer MEDICARE, SELFPAY ==
--- NOTE | 2021-06-06 10:43 | DI.MG.S_ITS ---
BILATERAL DIGITAL SCREENING MAMMOGRAM 3D/2D WITH CAD: 06/06/2021 CLINICAL: Routine screening. Family history of breast cancer. Comparison is made to exams dated: 05/15/2020 mammogram, 04/14/2019 mammogram, and 03/11/2018 mammogram - [facility]. The tissue of both breasts is heterogeneously dense. This may lower the sensitivity of mammography. Current study was also evaluated with a Computer Aided Detection (CAD) system. There are benign calcifications in both breasts. No significant masses, calcifications, or other findings are seen in either breast. There has been no significant interval change. IMPRESSION: BENIGN There is no mammographic evidence of malignancy. A 1 year screening mammogram is recommended. This exam was interpreted at Station ID: [id number]. NOTE: For mammograms, a report in lay terms will be sent to the patient. Approximately 15% of breast malignancies will not be visualized mammographically. In the management of a palpable breast mass, a negative mammogram must not discourage biopsy of a clinically suspicious lesion. Electronically Signed By: Giuseppe cohen/radha:06/06/2021 11:15:22 letter sent: Normal Exam ACR BI-RADS Category 2: Benign Finding(s) 3342F
== END ==
PROVIDERS: PCP Family Medicine; Referring Provider Family Medicine; Visit Provider Family Medicine
DX: Z12.31 Encounter for screening mammogram for malignant neoplasm of breast (principal); Z80.3 Family history of malignant neoplasm of breast
CPT/HCPCS: 77063; 77067

== ENCOUNTER → 2022-06-09 08:02 | Outpatient (CLI) | payer MEDICARE, SELFPAY ==
--- NOTE | 2022-06-09 08:05 | DI.MG.S_ITS ---
BILATERAL DIGITAL SCREENING MAMMOGRAM 3D/2D WITH CAD: 06/09/2022 CLINICAL: Routine screening. Family history of breast cancer. Comparison is made to exams dated: 06/06/2021 mammogram, 05/15/2020 mammogram, and 05/12/2019 mammogram - [facility]. Both breasts are heterogeneously dense, which may obscure small masses (category c / 51-75% glandular tissue). Current study was also evaluated with a Computer Aided Detection (CAD) system. There is a possible developing irregular high density asymmetry with a spiculated margin in the right breast at 10 o'clock middle depth. No other significant masses, calcifications, or other findings are seen in either breast. IMPRESSION: INCOMPLETE: NEEDS ADDITIONAL IMAGING EVALUATION The possible developing irregular high density asymmetry in the right breast is indeterminate. Additional views with possible ultrasound are recommended. Based on the Tyrer Cuzick model (a risk assessment model) the patient's lifetime risk is 12.7% and her 10 year risk is 11.5%. According to the ACR, ACS, and NCCN guidelines, an annual breast MRI exam along with mammogram is recommended if the patient's lifetime risk is 20% or greater. This exam was interpreted at Station ID: [id number]. NOTE: For mammograms, a report in lay terms will be sent to the patient. Approximately 15% of breast malignancies will not be visualized mammographically. In the management of a palpable breast mass, a negative mammogram must not discourage biopsy of a clinically suspicious lesion. Electronically Signed By: Swathi brewer/radha:06/09/2022 14:56:18 letter sent: Additional Imaging Needed ACR BI-RADS Category 0: Incomplete 3340F
[2022-06-09 09:13] LABS: Add Manual Diff / Slide Review NO; Basophils Absolute Auto 100 /uL (0-100); Eosinophils Absolute Auto 100 /uL (0-450); Eosinophils Percent Auto 2.1 % (2-4); Hematocrit 42.7 % (36-46); Lymphocytes Absolute Auto 1600 /uL (1100-4500); Lymphocytes Percent Auto 23.4 % (25-40); Mean Corpuscular HGB Conc 35.2 % (30-36); Mean Corpuscular Hemoglobin 32.1 PG (26-34); Mean Corpuscular Volume 91.3 fL (80-100); Monocytes Absolute Auto 500 /uL (0-900); Monocytes Percent Auto 6.9 % (3-14); Neutrophils Absolute Auto 4500 /uL (1500-7000); Neutrophils Percent Auto 66.6 % (50-75); Platelet Count 162 X10^3/uL (150-400); Red Blood Cell Count 4.67 X10^6/uL (4.0-5.2); Red Cell Distribution Width 13.6 % (11.6-14.8); White Blood Cell Count 6.7 X10^3/uL (4.5-11.0)
[2022-06-09 10:28] LABS: Alanine Aminotransferase 27 IU/L (<35); Albumin 4.3 g/dL (3.5-5.0); Albumin Globulin Ratio 1.6 (1.0-2.8); Alkaline Phosphatase 60 U/L (38-126); Aspartate Aminotransferase 34 IU/L (14-36); BUN Creatinine Ratio 28.2 (6-22); Bilirubin Total 0.9 mg/dL (0.2-1.3); Blood Urea Nitrogen 22 mg/dL (7-17); Calcium 9.6 mg/dL (8.4-10.2); Carbon Dioxide 31 mmol/L (22-32); Chloride 99 mmol/L (98-107); Cholesterol 140 mg/dL (140-199); Estimated Glomerular Filt Rate > 60 mL/min (>60); Globulin 2.7 g/dL (1.7-4.1); Glucose 99 mg/dL (80-110); HDL Cholesterol 69 mg/dL (40-60); HEMOLYSIS < 15 (0-50); LDL Cholesterol Calculated 58 mg/dL (<100); Potassium 4.5 mmol/L (3.4-5.1); Sodium 135 mmol/L (137-145); Triglycerides 65 mg/dL (35-150)
[2022-06-09 10:55] LABS: Thyroid Stimulating Hormone 0.896 uIU/mL (0.47-4.68)
== END ==
PROVIDERS: PCP Family Medicine; Referring Provider Family Medicine; Visit Provider Family Medicine
DX: Z12.31 Encounter for screening mammogram for malignant neoplasm of breast (principal); I10 Essential (primary) hypertension; E78.5 Hyperlipidemia, unspecified; Z80.3 Family history of malignant neoplasm of breast
CPT/HCPCS: 36415; 77063; 77067; 80053; 80061; 84443; 85025

== ENCOUNTER → 2022-07-03 08:12 | Outpatient (CLI) | payer MEDICARE, SELFPAY ==
--- NOTE | 2022-07-03 08:15 | DI.US.S_ITS ---
LIMITED ULTRASOUND OF RIGHT BREAST: 07/03/2022 CLINICAL: Patient returns today to evaluate a focal asymmetry in the right breast. Comparison is made to exams dated: 07/03/2022 mammogram, 06/09/2022 mammogram, 06/06/2021 mammogram, and 05/15/2020 mammogram - [facility]. Color flow and real-time ultrasound of the right breast 9-11 o'clock region were performed. Jaimes scale images of the real-time examination were reviewed. No significant abnormalities were seen sonographically in the right breast. IMPRESSION: PROBABLY BENIGN No sonographic correlate for the asymmetry in the right breast which decreased in conspicuity with spot compression. This is most likely superimposed fibroglandular tissue and is probably benign. A follow-up mammogram in 6 months is recommended to demonstrate stability. This exam was interpreted at Station ID: [id number]. Electronically Signed By: Pepe Nogueira M.D. jr/:07/03/2022 14:56:22 letter sent: Followup Recommended Ultrasound BI-RADS: 3 Probably benign
--- NOTE | 2022-07-03 08:15 | DI.US.S_ITS ---
PROCEDURE: US THYROID INDICATIONS: Enlarged thyroid - thyroid nodule seen in 2019 TECHNIQUE: Real-time scanning was performed of the thyroid gland, with image documentation. COMPARISON: [facility], US, US THYROID, 04/11/2021, 12:37. FINDINGS: Right: Thyroid lobe measures 6.5 x 4.5 x 4.3 cm, and contains multiple nodules. Left: Thyroid lobe measures 6.2 x 3.8 x 3.9 cm, and contains multiple nodules. Isthmus: 12 mm thick. Nodule number: 1 Location: Right lower pole Size: 5.0 x 4.0 x 4.5 cm. Composition: Predominantly solid Echogenicity: Hypoechoic Shape: wider than tall. Margins: Smooth Echogenic foci: Non Total points: 4 ACR TI-RADS category: Moderately suspicious Nodule number: 2 Location: Right middle pole Size: 1.5 x 1.4 x 2.1 cm. Composition: Predominantly solid Echogenicity: Hypoechoic Shape: wider than tall. Margins: Smooth Echogenic foci: None Total points: 4 ACR TI-RADS category: Moderately suspicious Nodule number: 3 Location: Left middle pole Size: 2.8 x 2.8 x 3.2 cm. Composition: Predominantly solid Echogenicity: Hypoechoic Shape: wider than tall. Margins: Smooth Echogenic foci: None Total points: 4 ACR TI-RADS category: Moderately suspicious Nodule number: 4 Location: Left lower pole Size: 3.5 x 4.3 x 4.7 cm. Composition: Predominantly solid Echogenicity: Hypoechoic Shape: wider than tall. Margins: Ill-defined Echogenic foci: None Total points: 4 ACR TI-RADS category: Moderately suspicious IMPRESSION: There are 4 separate nodules in the thyroid which are all moderately suspicious by imaging characteristics. Each of these nodules is of sufficient size to warrant ultrasound-guided FNA for tissue diagnosis. Comment: As there are 4 nodules that are of sufficient size to biopsy, would recommend that the patient visit on 2 separate occasions, and that the patient undergo FNA of 2 of these lesions on both visits. ACR TI-RADS definitions and recommendations: TI-RADS 1 (benign): 0 points. FNA not needed. TI-RADS 2 (not suspicious): 2 points. FNA not needed. TI-RADS 3 (mildly suspicious): 3 points. * FNA if 2.5 cm or larger, follow up if 1.5 cm or larger (at 1, 3, and 5 years). TI-RADS 4 (moderately suspicious): 4-6 points. * FNA if 1.5 cm or larger, follow up if 1 cm or larger (at 1, 2, 3, and 5 years). TI-RADS 5 (highly suspicious): 7 points or more. * FNA if 1 cm or larger, follow up if 0.5 cm or larger (every year for 5 years). Dictated by: Julio Cesar Gamez M.D. on 07/03/2022 at 12:20 Approved by: Julio Cesar Gamez M.D. on 07/03/2022 at 12:29
--- NOTE | 2022-07-03 08:15 | DI.MG.S_ITS ---
UNILATERAL RIGHT DIGITAL DIAGNOSTIC MAMMOGRAM 3D/2D WITH ADDITIONAL VIEWS: 07/03/2022 CLINICAL: Additional evaluation requested from prior study. Comparison is made to exams dated: 06/09/2022 mammogram, 06/06/2021 mammogram, and 05/15/2020 mammogram - [facility]. The right breast is heterogeneously dense, which may obscure small masses (category c / 51-75% glandular tissue). There is a possible developing irregular high density asymmetry with a spiculated margin in the right breast at 10 o'clock middle depth. This is less prominent. No other significant masses or calcifications are seen in the breast. IMPRESSION: INCOMPLETE: NEEDS ADDITIONAL IMAGING EVALUATION The possible developing irregular high density asymmetry in the right breast is indeterminate. An ultrasound is recommended. Based on the Tyrer Cuzick model (a risk assessment model) the patient's lifetime risk is 12.7% and her 10 year risk is 11.5%. According to the ACR, ACS, and NCCN guidelines, an annual breast MRI exam along with mammogram is recommended if the patient's lifetime risk is 20% or greater. This exam was interpreted at Station ID: [id number]. NOTE: For mammograms, a report in lay terms will be sent to the patient. Approximately 15% of breast malignancies will not be visualized mammographically. In the management of a palpable breast mass, a negative mammogram must not discourage biopsy of a clinically suspicious lesion. Electronically Signed By: Pepe Nogueira M.D., jr/radha:07/03/2022 14:55:08 ACR BI-RADS Category 0: Incomplete [id number]
== END ==
PROVIDERS: PCP Family Medicine; Referring Provider Physician Assistant; Visit Provider Physician Assistant
DX: R92.8 Other abnormal and inconclusive findings on diagnostic imaging of breast (principal); E04.2 Nontoxic multinodular goiter
CPT/HCPCS: 76536; 76642; 77065; G0279

== ENCOUNTER → 2022-07-31 08:46 | Outpatient (CLI) | payer MEDICARE, SELFPAY ==
--- NOTE | 2022-07-31 | PATH_ITS ---
Note [facility] Accession Number: [id number] TESTS RESULT FLAG UNITS REF RANGE LAB Clinician Provided Cytology Information No. of containers..01 Other (Miscellaneous) No. of containers..02 Previously Prepared Cytology Slide Source: RIGHT THYROID NODULE INF #1 DIAGNOSIS: 01 RIGHT THYROID NODULE INF #1, FINE NEEDLE ASPIRATION. NEGATIVE FOR MALIGNANT CELLS. ADEQUATE FOR EVALUATION. FOLLICULAR GROUPS ARE PRESENT. BENIGN FOLLICULAR (GOITEROUS) NODULE (BETHESDA CATEGORY II), SEE COMMENT. COMMENT: MICROSCOPIC EXAMINATION REVEALS A MILDLY CELLULAR ASPIRATE, COMPOSED OF COLLOID, FOLLICULAR GROUPS WITHOUT SIGNIFICANT CYTOLOGIC OR ARCHITECTURAL ATYPIA, AND BACKGROUND MACROPHAGES. FOCAL HURTHLE CELL CHANGES ARE SEEN. THESE FINDINGS SUPPORT A BENIGN FOLLICULAR (GOITEROUS) NODULE. CORRELATION WITH CLINICAL AND RADIOGRAPHIC FINDINGS IS RECOMMENDED. ACCORDING TO THE BETHESDA REPORTING SYSTEM FOR THYROID CYTOPATHOLOGY, THE RISK OF MALIGNANCY IN THE CATEGORY BENIGN-CATEGORY II IS 0-3%; THEREFORE RECOMMEND CONTINUED ULTRASOUND SURVEILLANCE WITH REPEAT FNA IF THE NODULE SIGNIFICANTLY INCREASES IN SIZE. Pathologist ICD10: 01 E04.1 Signed out by: Lety Arce MD, Pathologist NPI- [id number] Performed by: Roge Monreal, Show Card Letterer ([facility]) Gross description: 30 CC, RED, CLEAR RECIEVED: IN CYTOLYT WITH 6 ALCOHOL FIXED AND 6 QUICK STAINED SLIDES ALSO 1 RNA VIAL WAS RECEIVED.VO /VDU 08/01/2022 1137 [facility] FLAG LEGEND: L-Low Normal,H-High Normal,LL-Alert Low,HH-Alert High <-Panic Low,>-Panic High,A-Abnormal,AA-Critical Abnormal Performed at: 01 =Z [facility] [address] [place] [address] [address], [place] [address] Rogerio Tate MD, Performed at: 01 [facility] [address] [place] [address] [address], [place], [place] [id number] MD Rogerio Tate MD Phone: [phone]
--- NOTE | 2022-07-31 | PATH_ITS ---
Note [facility] Accession Number: [id number] TESTS RESULT FLAG UNITS REF RANGE LAB Clinician Provided Cytology Information No. of containers..01 Other (Miscellaneous) No. of containers..02 Previously Prepared Cytology Slide Source: 01 RIGHT THYROID NODULE SUPERIOR #2 DIAGNOSIS: RIGHT THYROID NODULE SUPERIOR #2 NEGATIVE FOR MALIGNANT CELLS. BETHESDA CATEGORY II. SPECIMEN CONSISTS OF BENIGN FOLLICULAR CELLS, HEMOSIDERIN-LADEN MACROPHAGES, AND ABUNDANT COLLOID. THIS PATTERN IS CONSISTENT WITH A COLLOID NODULE. Pathologist ICD10: 01 E04.1 Signed out by: Erica Mccormick MD, Pathologist NPI- [id number] Performed by: Antoine Hogan, Credit Director ([facility]) Gross description: 30 CC, RED, CLEAR RECIEVED: IN CYTOLYT WITH 6 ALCOHOL FIXED AND 6 QUICK STAINED SLIDES ALSO 1 RNA VIAL WAS RECEIVED.VO /VDU 08/01/2022 1138 [facility] FLAG LEGEND: L-Low Normal,H-High Normal,LL-Alert Low,HH-Alert High <-Panic Low,>-Panic High,A-Abnormal,AA-Critical Abnormal Performed at: 01 =[facility] [address], [place] [address] Rogerio Tate MD, Performed at: 01 [facility] [address], [place], [place] [id number] MD Rogerio Tate MD Phone: [phone]
--- NOTE | 2022-07-31 08:47 | DI.US.S_ITS ---
PROCEDURE: US FINE NEEDLE ASPIRATION INDICATIONS: RIGHT THYROID NODULES X 2 TECHNIQUE: The indications, alternatives, benefits, risks, and complications of the procedure were explained to the patient. Written informed consent was obtained and placed in the chart. The area of interest was examined sonographically and a site was chosen for ultrasound guided percutaneous sampling. The skin was prepared and draped in the usual fashion, and anesthetized with 1% lidocaine infiltrated from the skin down to the lesion. Multiple passes were then performed, with contents emptied into an appropriate pathology specimen container. A bandage was applied to the area of access at completion of the study. COMPARISON: None. FINDINGS: Location(s) of lesion(s) sampled: Right upper and middle thyroid lobe nodules [place]: 25 gauge hypodermic needles. Number of passes: 6 passes for each nodule. Medications: 1% lidocaine for local anaesthesia. Complications: None. IMPRESSION: Successful ultrasound-guided right thyroid nodules fine needle aspiration, with cytology results pending. Dictated by: Jamie Wynn M.D. on 07/31/2022 at 11:24 Approved by: Jamie Wynn M.D. on 07/31/2022 at 11:24
== END ==
PROVIDERS: PCP Family Medicine; Referring Provider Family Medicine; Visit Provider Family Medicine
DX: E04.2 Nontoxic multinodular goiter (principal)
CPT/HCPCS: 10005; 10006

== ENCOUNTER → 2022-08-05 08:41 | Outpatient (CLI) | payer MEDICARE, SELFPAY ==
--- NOTE | 2022-08-05 | PATH_ITS ---
Note [facility] Accession Number: [id number] TESTS RESULT FLAG UNITS REF RANGE LAB Clinician Provided Cytology Information No. of containers..01 Other (Miscellaneous) No. of containers..02 Previously Prepared Cytology Slide Source: LEFT THYROID NODULE #4 DIAGNOSIS: LEFT THYROID NODULE #4 NEGATIVE FOR MALIGNANT CELLS. BETHESDA CATEGORY II. SPECIMEN CONSISTS OF BENIGN FOLLICULAR CELLS AND NUMEROUS HEMOSIDERIN-LADEN MACROPHAGES. THIS PATTERN IS CONSISTENT WITH A BENIGN FOLLICULAR NODULE. Pathologist ICD10: E04.1 Signed out by: Erica Mccormick MD, Pathologist NPI- [id number] Performed by: Oscar Perdomo, Senior Science Consultant ([facility]) Gross description: 30 CC, PINK, CLEAR RECIEVED: IN CYTOLYT WITH 6 ALCOHOL FIXED AND 6 QUICK STAINED SLIDES ALSO 1 RNA VIAL WAS RECEIVED.VO /VDU 08/06/2022 1057 [facility] FLAG LEGEND: L-Low Normal,H-High Normal,LL-Alert Low,HH-Alert High <-Panic Low,>-Panic High,A-Abnormal,AA-Critical Abnormal Performed at: 01 =Z [facility] [address], [place] [address] Rogerio Tate MD, Performed at: 01 [facility] [address], [place], [place] [id number] MD Rogerio Tate MD Phone: [phone]
--- NOTE | 2022-08-05 | PATH_ITS ---
Note [facility] Accession Number: [id number] TESTS RESULT FLAG UNITS REF RANGE LAB Clinician Provided Cytology Information No. of containers..01 Other (Miscellaneous) No. of containers..02 Previously Prepared Cytology Slide Source: LEFT THYROID NODULE #3 DIAGNOSIS: LEFT THYROID NODULE #3 INCONCLUSIVE. BETHESDA CATEGORY III. ATYPIA OF UNDETERMINED SIGNIFICANCE. COMMENT: The specimen is relatively cellular with follicular cells displaying nuclear overlap, focal nuclear clearing, and rare nuclear grooves. Pathologist ICD10: 01 R89.6 Signed out by: Erica Mccormick MD, Pathologist NPI- [id number] Performed by: Roge Monreal, Rn Occupational Health ([facility]) Gross description: 30 CC, PINK, CLEAR RECIEVED: IN CYTOLYT WITH 6 ALCOHOL FIXED AND 6 QUICK STAINED SLIDES ALSO 1 RNA VIAL WAS RECEIVED.VO /VDU 08/06/2022 1056 [facility] FLAG LEGEND: L-Low Normal,H-High Normal,LL-Alert Low,HH-Alert High <-Panic Low,>-Panic High,A-Abnormal,AA-Critical Abnormal Performed at: 01 [facility] [address], [place] [address] Rogerio Tate MD, Performed at: 01 [facility] [address], [place], [place] [id number] MD Rogerio Tate MD Phone: [phone]
--- NOTE | 2022-08-05 08:43 | DI.US.S_ITS ---
PROCEDURE: US FINE NEEDLE ASPIRATION INDICATIONS: LEFT THYROID NODULES X2 TECHNIQUE: The indications, alternatives, benefits, risks, and complications of the procedure were explained to the patient. Written informed consent was obtained and placed in the chart. The area of interest was examined sonographically and a site was chosen for ultrasound guided percutaneous sampling. The skin was prepared and draped in the usual fashion, and anesthetized with 1% lidocaine infiltrated from the skin down to the lesion. Multiple passes were then performed, with contents emptied into an appropriate pathology specimen container. A bandage was applied to the area of access at completion of the study. COMPARISON: [facility], , US THYROID, 07/03/2022, 8:51. [facility], , FINE NEEDLE ASPIRATION, 07/31/2022, 8:59. FINDINGS: Location(s) of lesion(s) sampled: Left mid thyroid nodule measuring 3.2 cm. Left inferior thyroid nodule measuring 4.7 cm. [place]: 25 gauge hypodermic needles. Number of passes: 6 each. Medications: 1% lidocaine for local anaesthesia. Complications: None. IMPRESSION: Successful ultrasound-guided left thyroid nodules x2 fine needle aspiration, with cytology results pending. Dictated by: Gold Santos M.D. on 08/05/2022 at 11:19 Approved by: Gold Santos M.D. on 08/05/2022 at 11:21
== END ==
PROVIDERS: PCP Family Medicine; Referring Provider Family Medicine; Visit Provider Family Medicine
DX: E04.2 Nontoxic multinodular goiter (principal)
CPT/HCPCS: 10005; 10006

== ENCOUNTER → 2023-01-02 09:06 | Outpatient (CLI) | payer MEDICARE, SELFPAY ==
--- NOTE | 2023-01-02 09:08 | DI.US.S_ITS ---
LIMITED ULTRASOUND OF RIGHT BREAST: 01/02/2023 CLINICAL: Patient returns today to evaluate an asymmetry in the right breast. Comparison is made to exams dated: 01/02/2023 mammogram, 07/03/2022 ultrasound, 07/03/2022 mammogram, 06/09/2022 mammogram, 06/06/2021 mammogram, and 05/15/2020 mammogram - [facility]. Real-time ultrasound of the right breast 10-11 o'clock region was performed. Jaimes scale images of the real-time examination were reviewed. No significant abnormalities were seen sonographically in the right breast. IMPRESSION: NEGATIVE There is no sonographic evidence of malignancy. Return to screening mammogram schedule is recommended. Exam findings were conveyed to the patient. This exam was interpreted at Station ID: [id number]. Electronically Signed By: Gold Santos M.D. [facility]/:01/02/2023 11:02:17 Entry: - 01/09/2023 12:29:36 letter sent: Normal Exam Ultrasound BI-RADS: 1 Negative
--- NOTE | 2023-01-02 09:08 | DI.MG.S_ITS ---
UNILATERAL RIGHT DIGITAL DIAGNOSTIC MAMMOGRAM 3D/2D: 01/02/2023 CLINICAL: Patient returns for a 6 month follow up of the right breast. Comparison is made to exams dated: 07/03/2022 mammogram, 06/09/2022 mammogram, 06/06/2021 mammogram, 07/03/2022 ultrasound, and 05/15/2020 mammogram - [facility]. The right breast is heterogeneously dense, which may obscure small masses (category c / 51-75% glandular tissue). There is a possible asymmetry in the right breast at 10 o'clock middle depth. This is not seen in additional views. This was not seen on the prior ultrasound. No other significant masses or calcifications are seen in the breast. IMPRESSION: INCOMPLETE: NEEDS ADDITIONAL IMAGING EVALUATION The possible asymmetry in the right breast is indeterminate. A targeted ultrasound is recommended and will immediately follow. Based on the Tyrer Cuzick model (a risk assessment model) the patient's lifetime risk is 11.7% and her 10 year risk is 11.7%. According to the ACR, ACS, and NCCN guidelines, an annual breast MRI exam along with mammogram is recommended if the patient's lifetime risk is 20% or greater. This exam was interpreted at Station ID: [id number]. NOTE: For mammograms, a report in lay terms will be sent to the patient. Approximately 15% of breast malignancies will not be visualized mammographically. In the management of a palpable breast mass, a negative mammogram must not discourage biopsy of a clinically suspicious lesion. Electronically Signed By: Gold Santos M.D. [facility]/:01/02/2023 10:53:21 ACR BI-RADS Category 0: Incomplete 3340F
== END ==
PROVIDERS: PCP Family Medicine; Referring Provider Physician Assistant; Visit Provider Physician Assistant
DX: R92.8 Other abnormal and inconclusive findings on diagnostic imaging of breast
CPT/HCPCS: 76642; 77065; G0279

== ENCOUNTER 2023-02-10 09:58 | Day surgery (SDC) | payer MEDICARE, SELFPAY ==
[2023-02-10] VITALS (7 sets, daily range): BP systolic 111–141; BP diastolic 68–86; PULSE 63–99; RESP 12–20; TEMP 36.3–36.6; O2SAT 98–99; BMI 21.1
[2023-02-10] MEDS: LACTATED RINGERS 1,000 ML 150 ML IV (10:34)
--- NOTE | 2023-02-10 11:37 | P.HP_ITS ---
History of Present Illness History of Present Illness Date Patient Seen: 02/10/23 Time Patient Seen: 11:37 Chief complaint: Screening Colonoscopy Narrative: 77-year-old woman personal history of colonic polyps here for screening colonoscopy. Her mother and sister both developed colon cancer. No abdominal concerns today including pain unintentional weight loss blood per rectum loss of appetite. FORMERLY [facility], [facility] Medical History (Updated 02/10/23 @ 11:39 by Byron Evans MD) Cluster headache CAD (coronary artery disease) Hearing deficit Headache (~1982) Mumps (~1955) Hearing loss (~1970) Glaucoma (~2009) Colon polyps (~1999) Surgical History Anesthesia Status post placement of bare metal coronary artery stent (~2015) Status post colonoscopy History of tonsillectomy Family History Father Myocardial infarction Sister Age: 77 Breast CA Social History marital status: household members: none lives independently: Yes education level: college occupational status: other (retired) Smoking Status: Never smoker alcohol intake: never substance use type: does not use Meds Home Medications and Allergies Home Medications Medication Instructions Recorded Confirmed Type aspirin 81 mg tablet,delayed 81 mg PO MOWEFR #30 tabs 12/20/15 02/10/23 History release CoQ-10 1 cap PO DAILY 11/25/18 06/12/22 History buspirone 15 mg tablet 5 mg PO QAM 11/25/18 02/10/23 History vitamin E 1 cap PO DAILY 11/25/18 06/12/22 History buspirone 15 mg tablet See Rx Instructions .Route 05/22/22 02/10/23 Rx .COMPLEX #90 tabs atorvastatin 40 mg tablet 40 mg PO BEDTIME #90 tabs 06/12/22 02/10/23 Rx losartan 25 mg tablet 25 mg PO BID #180 tabs 06/12/22 02/10/23 Rx nitroglycerin 0.4 mg sublingual 0.4 mg sublingual PRN PRN Chest 06/12/22 Rx tablet (Nitrostat) Pain #30 tabs sodium,potassium,mag sulfates 17.5 See Rx Instructions PO .COMPLEX 08/06/22 Rx gram-3.13 gram-1.6 gram oral soln #354 mL (Suprep Bowel Prep Kit) indomethacin 25 mg capsule See Rx Instructions .Route 12/22/22 02/10/23 Rx .COMPLEX #270 caps Allergies Allergy/AdvReac Type Severity Reaction Status Date / Time No Known Allergies Allergy Uncoded 06/12/22 11:09 Exam Vital Signs (past 8 hours): - 02/10/23 10:22 Temperature 97.3 F L Pulse Rate 74 Respiratory Rate 15 Blood Pressure 140/77 Pulse Oximetry 99 Oxygen Delivery Method Room Air Oxygen Delivery Method Room Air Narrative Exam Narrative: General adult woman alert oriented no acute distress Abdomen soft nontender nondistended Assessment & Plan Assessment and plan (1) Colon polyps: Qualifiers: Colon polyp type: unspecified Colon location: unspecified part of colon Qualified Code(s): K63.5 - Polyp of colon Status: Acute Assessment & Plan narrative: The patient requires colorectal screening and colonoscopy is recommended. Technical details were discussed. Risks, benefits, alternatives explained. Risks including but not limited to myocardial infarction, aspiration, bleeding, pain, missed lesion, incomplete examination, need for further radiographic studies, colonic perforation, and need for major abdominal surgery were discussed. All questions were answered to their satisfaction, and they are in agreement with this plan.
--- NOTE | 2023-02-10 12:20 | P.OP.COLON_ITS ---
Operative Date/Time/Diagnoses Date of procedure: 02/10/23 Time of procedure: 12:20 Pre-op diagnosis: Family history of colon cancer Post-op diagnosis: same Procedure & Clinicians Study performed: Colonoscopy Same procedure as scheduled: Yes Indications: Family history of colon cancer in mother and sister Surgeon: Byron Evans Procedure Notes Procedure in detail: The history and physical was performed/updated and the patient is ASA class is 2. The procedure was discussed in detail with the patient. Potential risks complications including infection, bleeding, missed diagnosis, perforation, need for surgery, and were explained. Their questions were answered and informed consent was obtained. Patient was brought to the procedure room and placed standard monitoring equipment. The patient's vital signs were monitored continuously throughout the entire procedure. Prior to starting time-out was performed. The patient was placed in the left lateral recumbent position. Procedural sedation was administered by anesthesia. Examination began with a thorough inspection of the perianal area there was no evidence of fissures, fistulae, external hemorrhoids or cutaneous malignancy. The colonoscopy scope was then placed into the anal canal and was advanced forward. Reach the ascending colon with use of stiffening the scope and external compression she had a very tortuous colon. We are able to reach the mid ascending colon we could see into the cecum but it could not be intubated despite multiple attempts. The scope was then carefully withdrawn. No polyps or masses. Mild diverticulosis of descending colon. Internal hemorrhoids The patient tolerated the procedure well. They will be discharged once criteria are met. The prep was of good/excellent quality. The withdrawl time was 6 mi nutes. Specimen(s): none sent Impression: Normal colonoscopy Post-procedure Plan for aftercare: No further colonoscopy necessary unless symptomatic Disposition: same day surgery
== END 2023-02-10 12:56 | disposition home or self-care (01) ==
PROVIDERS: PCP Family Medicine; Referring Provider Surgery; Visit Provider Surgery
PROC: 0DJD8ZZ Inspection of Lower Intestinal Tract, Via Natural or Artificial Opening Endoscopic (ICD-10-PCS; CPT 45378; principal; 2023-02-10 11:15)
DX: Z12.11 Encounter for screening for malignant neoplasm of colon (principal); Z80.0 Family history of malignant neoplasm of digestive organs; K57.30 Diverticulosis of large intestine without perforation or abscess without bleeding; K64.8 Other hemorrhoids
CPT/HCPCS: G0105; J2704

== ENCOUNTER → 2023-05-27 12:50 | Outpatient (CLI) | payer MEDICARE, SELFPAY ==
--- NOTE | 2023-05-27 12:51 | DI.US.S_ITS ---
PROCEDURE: US THYROID INDICATIONS: Goiter TECHNIQUE: Real-time scanning was performed of the thyroid gland, with image documentation. COMPARISON: [facility], US, US THYROID, 07/03/2022, 8:51. FINDINGS: Right: Thyroid lobe measures 8.0 x 2.9 x 2.5 cm, and is heterogeneous in echotexture. Left: Thyroid lobe measures 7.4 x 3.8 x 3.2 cm, and is heterogeneous in echotexture. Isthmus: 1.6 cm thick. Nodule number: 1 Location: Right lower pole Size: 5.5 x 4.5 x 4.1 cm, previously 5.0 x 4.0 x 4.5 cm. Composition: Solid Echogenicity: Hypoechoic Shape: wider than tall. Margins: Smooth Echogenic foci: Punctate Total points: 7 ACR TI-RADS category: Highly suspicious Nodule number: 2 Location: Right middle pole Size: 1.8 x 1.7 x 1.7 cm, previously 1.5 x 1.4 x 2.1 cm. Composition: Solid Echogenicity: Hypoechoic Shape: wider than tall. Margins: Smooth Echogenic foci: Punctate Total points: 7 ACR TI-RADS category: Highly suspicious suspicious Nodule number: 3 Location: Left middle pole Size: 3.6 x 3.4 x 2.3 cm, previously 2.8 x 2.8 x 3.2 cm. Composition: Solid Echogenicity: Hypoechoic Shape: wider than tall. Margins: Smooth Echogenic foci: Punctate Total points: 7 ACR TI-RADS category: Highly suspicious suspicious Nodule number: 4 Location: Left lower pole Size: 3.5 x 4.3 x 3.9 cm, previously.3.5 x 4.3 x 4.7 cm. Composition: Solid Echogenicity: Hypoechoic Shape: wider than tall. Margins: Ill-defined Echogenic foci: Punctate Total points: 7 ACR TI-RADS category: Highly suspicious the IMPRESSION: Markedly enlarged thyroid goiter, with multiple sizable nodules. Nodule 1 and nodule 3 appear to have increased in size. All 4 nodules are of sufficient size to indicate the need for tissue diagnosis. Recommend correlation with previous thyroid FNAs regarding which lesions have been sampled and what the cytology reveals. Additionally, consider referral to an administrator or a thyroid surgeon if this has not yet been performed, regarding potential treatment options ACR TI-RADS definitions and recommendations: TI-RADS 1 (benign): 0 points. FNA not needed. TI-RADS 2 (not suspicious): 2 points. FNA not needed. TI-RADS 3 (mildly suspicious): 3 points. * FNA if 2.5 cm or larger, follow up if 1.5 cm or larger (at 1, 3, and 5 years). TI-RADS 4 (moderately suspicious): 4-6 points. * FNA if 1.5 cm or larger, follow up if 1 cm or larger (at 1, 2, 3, and 5 years). TI-RADS 5 (highly suspicious): 7 points or more. * FNA if 1 cm or larger, follow up if 0.5 cm or larger (every year for 5 years). Dictated by: Julio Cesar Gamez M.D. on 05/27/2023 at 18:03 Approved by: Julio Cesar Gamez M.D. on 05/27/2023 at 18:14
== END ==
PROVIDERS: PCP Student in an Organized Health Care Education/Training Program; Referring Provider Student in an Organized Health Care Education/Training Program; Visit Provider Student in an Organized Health Care Education/Training Program
DX: E04.2 Nontoxic multinodular goiter (principal)
CPT/HCPCS: 76536

== ENCOUNTER → 2023-06-18 12:39 | Outpatient (CLI) | payer MEDICARE, SELFPAY ==
--- NOTE | 2023-06-18 | PATH_ITS ---
Note [facility] Accession Number: [id number] TESTS RESULT FLAG UNITS REF RANGE LAB Clinician Provided Cytology Information No. of containers..01 Other (Miscellaneous) No. of containers..02 Previously Prepared Cytology Slide Source: SUPERIOR LEFT THYROID NODULE #3 DIAGNOSIS: 01 SUPERIOR LEFT THYROID NODULE #3, FINE NEEDLE ASPIRATION. NEGATIVE FOR MALIGNANT CELLS. ADEQUATE FOR EVALUATION. FOLLICULAR GROUPS ARE PRESENT. BENIGN FOLLICULAR (GOITEROUS) NODULE (B[place]ESDA CATEGORY II), SEE COMMENT. COMMENT: MICROSCOPIC EXAMINATION REVEALS A MILDLY CELLULAR ASPIRATE, COMPOSED OF COLLOID, FOLLICULAR GROUPS WITHOUT SIGNIFICANT CYTOLOGIC OR ARCHITECTURAL ATYPIA, AND BACKGROUND MACROPHAGES. THESE FINDINGS SUPPORT A BENIGN FOLLICULAR (GOITEROUS) NODULE. CORRELATION WITH CLINICAL AND RADIOGRAPHIC FINDINGS IS RECOMMENDED. ACCORDING TO THE [place] REPORTING SYSTEM FOR THYROID CYTOPATHOLOGY, THE RISK OF MALIGNANCY IN THE CATEGORY BENIGN-CATEGORY II IS 0-3%; THEREFORE RECOMMEND CONTINUED ULTRASOUND SURVEILLANCE WITH REPEAT FNA IF THE NODULE SIGNIFICANTLY INCREASES IN SIZE. Pathologist ICD10: 01 E04.2 Signed out by: Willie Arce MD, Pathologist NPI- [id number] Performed by: Willie Hogan, Health Care Marketing Specialist ([facility]) Gross description: 01 30 CC, PINK, CLEAR RECIEVED: IN CYTOLYT WITH 6 ALCOHOL FIXED AND 6 QUICK STAINED SLIDES ALSO 1 RNA VIAL WILL ON 02-13-2025.VO /VDU 06/19/2023 0714 [facility] FLAG LEGEND: L-Low Normal,H-High Normal,LL-Alert Low,HH-Alert High <-Panic Low,>-Panic High,A-Abnormal,AA-Critical Abnormal Performed at: 01 =[facility] [address] [place] [address] [address], [place] [address] Rogerio Tate MD, Performed at: [facility] [address] [place] [address] [address], [place], [place] [id number] MD Rogerio Tate MD Phone: [phone]
--- NOTE | 2023-06-18 12:42 | DI.US.S_ITS ---
PROCEDURE: US FINE NEEDLE ASPIRATION INDICATIONS: nodule #3 TECHNIQUE: The indications, alternatives, benefits, risks, and complications of the procedure were explained to the patient. Written informed consent was obtained and placed in the chart. The thyroid region was examined sonographically and a site was chosen for ultrasound guided percutaneous sampling. The skin was prepared and draped in the usual fashion, and anesthetized with 1% lidocaine infiltrated from the skin down to the thyroid gland. Multiple passes were then performed, with contents emptied into an appropriate pathology specimen container. A bandage was applied to the area of access at completion of the study. COMPARISON: US, US THYROID, 07/03/2022, 8:51. [facility], US, US FINE NEEDLE ASPIRATION, 08/05/2022, 8:53. [facility], US, US THYROID, 05/27/2023, 13:11. [facility], US, US FINE NEEDLE ASPIRATION, 07/31/2022, 8:59. FINDINGS: Location(s) of lesion(s) sampled: Left superior nodule (#3) [place]: 25 gauge hypodermic needles. Number of passes: 6 Medications: 1% lidocaine for local anaesthesia. Complications: None. IMPRESSION: Successful ultrasound-guided thyroid nodule fine needle aspiration, with cytology results pending. Please see chart below for management recommendations based on cytology results. [facility] ReportingRecommendationsNon-diagnostic* Repeat US-guided FNA, with on-site cytology evaluation if possible. * Repeated non-diagnostic nodules without high suspicion US features: close observation vs surgical consult. * Consider surgery if nodule has high suspicion US features, grows >20% in 2 dimensions on followup, or patient has clinical risk factors for malignancy. Benign* If nodule has high suspicion US features: repeat US and FNA within 12 months. * If nodule has low to intermediate suspicion US features: repeat US at 12-24 months. If nodule grows (20% increase in at least 2 dimensions, with minimal increase of 2 mm or >50% change in volume), or development of new suspicious US features, then repeat FNA or continue followup. * If nodule has very low suspicion US features: followup US at >24 months. Atypia of undetermined significance, follicular lesion of undetermined significanceRepeat FNA, molecular testing, followup US, or surgical consult.Follicular neoplasm, suspicious for follicular neoplasmSurgical consult; also consider molecular testing. Suspicious for malignancySurgical consult.MalignantSurgical consult. Dictated by: Deidre Cabral M.D. on 06/18/2023 at 14:14 Approved by: Deidre Cabral M.D. on 06/18/2023 at 14:17
== END ==
PROVIDERS: PCP Student in an Organized Health Care Education/Training Program; Referring Provider Student in an Organized Health Care Education/Training Program; Visit Provider Student in an Organized Health Care Education/Training Program
DX: E04.2 Nontoxic multinodular goiter (principal)
CPT/HCPCS: 10005

== ENCOUNTER → 2023-06-30 09:17 | Outpatient (CLI) | payer MEDICARE, SELFPAY ==
[2023-06-30 10:01] LABS: Add Manual Diff / Slide Review NO; Basophils Absolute Auto 100 /uL (0-100); Basophils Percent Auto 1.1 % (0-2); Eosinophils Absolute Auto 100 /uL (0-450); Eosinophils Percent Auto 2.4 % (2-4); Hematocrit 42.2 % (36-46); Hemoglobin 14.8 g/dL (12.0-16.0); Lymphocytes Absolute Auto 1300 /uL (1100-4500); Lymphocytes Percent Auto 24.2 % (25-40); Mean Corpuscular HGB Conc 35.1 % (30-36); Mean Corpuscular Hemoglobin 32.1 PG (26-34); Mean Corpuscular Volume 91.6 fL (80-100); Monocytes Absolute Auto 500 /uL (0-900); Monocytes Percent Auto 8.7 % (3-14); Neutrophils Absolute Auto 3500 /uL (1500-7000); Neutrophils Percent Auto 63.6 % (50-75); Platelet Count 140 X10^3/uL (150-400); Red Blood Cell Count 4.61 X10^6/uL (4.0-5.2); Red Cell Distribution Width 13.4 % (11.6-14.8); White Blood Cell Count 5.5 X10^3/uL (4.5-11.0)
[2023-06-30 10:17] LABS: Alanine Aminotransferase 29 IU/L (<35); Albumin 4.3 g/dL (3.5-5.0); Albumin Globulin Ratio 1.7 (1.0-2.8); Alkaline Phosphatase 73 U/L (38-126); Aspartate Aminotransferase 39 IU/L (14-36); BUN Creatinine Ratio 25.4 (6-22); Bilirubin Total 0.9 mg/dL (0.2-1.3); Blood Urea Nitrogen 17 mg/dL (7-17); Calcium 9.6 mg/dL (8.4-10.2); Carbon Dioxide 28 mmol/L (22-32); Chloride 103 mmol/L (98-107); Cholesterol 126 mg/dL (140-199); Estimated Glomerular Filt Rate > 60 mL/min (>60); Globulin 2.5 g/dL (1.7-4.1); Glucose 105 mg/dL (80-110); HDL Cholesterol 71 mg/dL (40-60); HEMOLYSIS < 15 (0-50); LDL Cholesterol Calculated 45 mg/dL (<100); Potassium 4.5 mmol/L (3.4-5.1); Sodium 136 mmol/L (137-145); Total Protein 6.8 g/dL (6.3-8.2); Triglycerides 50 mg/dL (35-150)
[2023-06-30 10:53] LABS: TSH w/ Reflex to FT4 1.06 uIU/mL (0.47-4.68)
--- NOTE | 2023-06-30 11:52 | DI.RAD.S_ITS ---
Bone Density Report Name: RIVERA MCGINNIS Age: 77 Sex: Female Ethnicity: White Date of : 1945 Indication: osteopenia; monitoring treatment; Referring Provider: AGUILAR ORDAZ Study: Bone densitometry was performed. Exam Date: June 30, 2023 Accession number: [id number] Bone Density: Region BMD T-score Z-score Classification AP Spine(L1-L4) 0.978 -0.6 1.8 Normal Femoral Neck (Left) 0.650 -1.8 0.3 Osteopenia Total Hip (Left) 0.761 -1.5 0.3 Osteopenia Femoral Neck (Right) 0.644 -1.8 0.3 Osteopenia Total Hip (Right) 0.741 -1.6 0.2 Osteopenia Total Hip Mean 0.751 -1.6 0.3 Osteopenia World Health Organization criteria for BMD impression classify patients as: Normal (T-score at or above -1.0), Osteopenia (T-score between -1.0 and -2.5), or Osteoporosis (T-score at or below -2.5). 10-year Fracture Risk: FRAX not reported because: Treated for osteoporosis Previous Exams: -- Region Exam Age BMD T-score BMD Change BMD Change Date g/cm2 vs Baseline vs Previous -- AP Spine (L1-L4) 06/30/2023 77 0.978 -0.6 -0.036 (-3.5%)# -0.036 (-3.5%)# 05/15/2020 74 1.014 -0.3 Total Hip(Left) 06/30/2023 77 0.761 -1.5 -0.070 (-8.5%)# -0.070 (-8.5%)# 05/15/2020 74 0.832 -0.9 Total Hip(Right) 06/30/2023 77 0.741 -1.6 -0.060 (-7.5%)# -0.060 (-7.5%)# 05/15/2020 74 0.801 -1.2 -- *Denotes significance at 95% confidence level, LSC for AP Spine = 0.022 g/cm2, LSC for Total Hip = 0.027 g/cm2 # Denotes dissimilar scan types or analysis methods Impression: The patient has low bone mass, based on the Left Femoral Neck T-score. No significant bone loss was observed. Discussion: PATIENT UNDER TREATMENT WITH NO SIGNIFICANT BMD LOSS SINCE LAST EXAM. In an untreated patient, BMD typically declines with age. A lack of decline or gain is usually a sign that treatment is efficacious and fracture risk is reduced. It is important to ask patients whether they are taking their medications and to encourage continued and appropriate compliance with their osteoporosis therapies to reduce fracture risk. It is also important to review their risk factors and encourage appropriate calcium and vitamin D intakes, exercise, fall prevention and other lifestyle measures. Follow-Up: Consider a repeat BMD and Vertebral Fracture Assessment (VFA) exam in 2 years or sooner if medically necessary, to reassess this patient's status. Reported by: PAULINE FLAHERTY MD on 06/30/2023 12:26:00 PM.
== END ==
PROVIDERS: PCP Student in an Organized Health Care Education/Training Program; Referring Provider Student in an Organized Health Care Education/Training Program; Visit Provider Student in an Organized Health Care Education/Training Program
DX: M81.0 Age-related osteoporosis without current pathological fracture (principal); Z91.89 Other specified personal risk factors, not elsewhere classified; E78.5 Hyperlipidemia, unspecified; E04.9 Nontoxic goiter, unspecified; I10 Essential (primary) hypertension
CPT/HCPCS: 36415; 77080; 80053; 80061; 84443; 85025

== ENCOUNTER → 2023-07-16 11:11 | Outpatient (CLI) | payer MEDICARE, SELFPAY ==
--- NOTE | 2023-07-16 11:12 | DI.MG.S_ITS ---
BILATERAL DIGITAL SCREENING MAMMOGRAM 3D/2D WITH CAD: 07/16/2023 CLINICAL: Routine screening. Family history of breast cancer. Comparison is made to exams dated: 06/09/2022 mammogram, 06/06/2021 mammogram, and 05/15/2020 mammogram - [facility]. Both breasts are heterogeneously dense, which may obscure small masses (category c / 51-75% glandular tissue). Current study was also evaluated with a Computer Aided Detection (CAD) system. No significant masses, calcifications, or other findings are seen in either breast. There has been no significant interval change. IMPRESSION: NEGATIVE There is no mammographic evidence of malignancy. A 1 year screening mammogram is recommended. Based on the Tyrer Cuzick model (a risk assessment model) the patient's lifetime risk is 11.7% and her 10 year risk is 11.7%. According to the ACR, ACS, and NCCN guidelines, an annual breast MRI exam along with mammogram is recommended if the patient's lifetime risk is 20% or greater. This exam was interpreted at Station ID: [id number]. NOTE: For mammograms, a report in lay terms will be sent to the patient. Approximately 15% of breast malignancies will not be visualized mammographically. In the management of a palpable breast mass, a negative mammogram must not discourage biopsy of a clinically suspicious lesion. Electronically Signed By: Maria Eugenia Griffiths M.D., PH.D eb/radha:07/16/2023 11:55:44 letter sent: Normal Exam ACR BI-RADS Category 1: Negative [id number]
== END ==
PROVIDERS: PCP Student in an Organized Health Care Education/Training Program; Referring Provider Student in an Organized Health Care Education/Training Program; Visit Provider Student in an Organized Health Care Education/Training Program
DX: Z12.31 Encounter for screening mammogram for malignant neoplasm of breast (principal); Z80.3 Family history of malignant neoplasm of breast; R92.333 Mammographic heterogeneous density, bilateral breasts
CPT/HCPCS: 77063; 77067

== ENCOUNTER 2023-12-27 12:05 | Emergency (ER) | payer MEDICARE, SELFPAY ==
[2023-12-27 12:14] VITALS: BP 180/76; PULSE 56; RESP 18; TEMP 36.5; O2SAT 97; BMI 21.3
--- NOTE | 2023-12-27 12:40 | ED.HA ---
HPI - Headache <Cristhian Castillo PA-C - Last Filed: 12/27/23 14:03> General Chief Complaint: Headache Stated Complaint: cluster headache t-2 Time Seen by Provider: 12/27/23 12:37 Mode of arrival: Ambulatory History of Present Illness HPI Narrative: This is a 78-year-old female presents emergency department due to an acute on chronic cluster headache. She states that she has been having worsening headaches over the last couple of days but has been able to take her indomethacin as she was she has a thyroidectomy planned for tomorrow. She states that the headaches are very similar in nature as the chronic headache she was had for the last 40 years. She denies any slurred speech, facial drooping, weakness, or any other concerning signs or symptoms. Did take 1 dose of Tylenol this morning without significant relief. Related Data Home Medications Medication Instructions Recorded Confirmed aspirin 81 mg tablet,delayed 81 mg PO MOWEFR #30 tabs 12/20/15 06/16/23 release CoQ-10 1 cap PO DAILY 11/25/18 06/16/23 vitamin E 1 cap PO DAILY 11/25/18 06/16/23 Previous Rx's Medication Instructions Recorded nitroglycerin 0.4 mg sublingual 0.4 mg sublingual PRN PRN Chest 06/12/22 tablet (Nitrostat) Pain #30 tabs atorvastatin 40 mg tablet 40 mg PO BEDTIME #90 tabs 05/19/23 losartan 25 mg tablet 25 mg PO BID #180 tabs 05/19/23 indomethacin 25 mg capsule 25 mg PO 3XD #270 caps 06/10/23 buspirone 15 mg tablet See Rx Instructions .Route 08/07/23 .COMPLEX #90 tabs acetaminophen 325 mg capsule 650 mg (2 x 325 mg) PO Q4H PRN 12/27/23 (Tylenol) pain #30 caps Allergies Allergy/AdvReac Type Severity Reaction Status Date / Time No Known Drug Allergies Allergy Verified 12/27/23 12:14 Review of Systems <Cristhian Castillo PA-C - Last Filed: 12/27/23 14:03> Review of Systems Narrative: GENERAL: Denies chills, fatigue, malaise, fever, sweats. HEENT: Reports headache, Denies sinus pain, ear pain, sore throat, difficulty swallowing, dizziness. RESPIRATORY: Denies dyspnea, cough, wheezing, hemoptysis, sputum. CARDIOVASCULAR: Denies chest pain, palpitations, orthopnea, edema, GASTROINTESTINAL: Denies nausea, vomiting, abdominal pain, diarrhea, constipation, melena. : Denies dysuria, frequency, incontinence, hematuria, urinary retention. MUSCULOSKELETAL: denies weakness, joint pain, or bony pain SKIN: Denies rash, skin lesions, or other NEUROLOGIC: Denies weakness, headache, numbness, change in speech, confusion, seizures, incoordination. PSYCHIATRIC: No concerning psychosocial issues. 12 point review of systems is negative except for those stated above Patient History <Cristhian Castillo PA-C - Last Filed: 12/27/23 14:03> Medical History (Updated 12/27/23 @ 14:01 by Cristhian Castillo PA-C) Cluster headache CAD (coronary artery disease) Hearing deficit Headache (~1982) Mumps (~1955) Hearing loss (~1970) Glaucoma (~2009) Colon polyps (~1999) Surgical History Anesthesia Status post placement of bare metal coronary artery stent (~2015) Status post colonoscopy History of tonsillectomy Family History Father Myocardial infarction Sister Age: 78 Breast CA Social History marital status: household members: none lives independently: Yes education level: college occupational status: other (retired) Smoking Status: Never smoker alcohol intake: never substance use type: does not use Smoking Status: Never smoker alcohol intake frequency: 0-2 drinks per day Substance Use Type: does not use Exam <Cristhian Castillo PA-C - Last Filed: 12/27/23 14:03> Narrative Exam Narrative: GENERAL: Well-developed patient, in mild distress. HEAD: Atraumatic. Normocephalic. EYES: Pupils equal round and reactive. Extraocular motions intact. No scleral icterus. No injection or drainage. ENT: Nose without bleeding, purulent drainage. Throat without erythema, tonsillar hypertrophy or exudate. Airway patent. NECK: Trachea midline. Non tender EXTREMITIES: No edema or joint tenderness. NEURO: AOx3. Cranial nerves 2-12 intact SKIN: No rash or erythema of visible areas Initial Vital Signs Initial Vital Signs: Vital Signs Temperature 97.7 F 12/27/23 12:14 Pulse Rate 56 L 08/25/24 12:14 Respiratory Rate 18 12/27/23 12:14 Blood Pressure 180/76 H 12/27/23 12:14 Pulse Oximetry 97 12/27/23 12:14 Oxygen Delivery Method Room Air 12/27/23 12:14 <Romana Veronica MD - Last Filed: 12/27/23 18:35> Initial Vital Signs Initial Vital Signs: Vital Signs Temperature 97.7 F 12/27/23 12:14 Pulse Rate 56 L 12/27/23 12:14 Respiratory Rate 18 12/27/23 12:14 Blood Pressure 180/76 H 12/27/23 12:14 Pulse Oximetry 97 12/27/23 12:14 Oxygen Delivery Method Room Air 12/27/23 12:14 Course <Cristhian Castillo PA-C - Last Filed: 12/27/23 14:03> Orders Ordered: Discontinued Medications Acetaminophen (Ofirmev) 1,000 mg in 100 mls @ 400 mls/hr IV NOW ONE Stop: 12/27/23 13:03 Last Infusion: 12/27/23 13:17 Dose: Infused Documented By: Admin: 12/27/23 12:59 Dose: 400 mls/hr Documented By: Sodium Chloride (Normal Saline 0.9%) 1,000 mls @ 1,000 mls/hr IV BOLUS ONE Stop: 12/27/23 13:48 Last Infusion: 12/27/23 14:02 Dose: Infused Documented By: Admin: 12/27/23 12:59 Dose: 1,000 mls/hr Documented By: Vital Signs Vital signs: Vital Signs - 8 hr 12/27/23 12:14 12/27/23 13:07 12/27/23 14:03 Temperature 97.7 F 97.8 F Pulse Rate 56 L 65 Respiratory Rate 18 16 Blood Pressure 180/76 H 131/62 Pulse Oximetry 97 97 Oxygen Delivery Method Room Air Nasal Cannula Room Air Oxygen Flow Rate 6 <Romana Veronica MD - Last Filed: 12/27/23 18:35> Orders Ordered: Discontinued Medications Acetaminophen (Ofirmev) 1,000 mg in 100 mls @ 400 mls/hr IV NOW ONE Stop: 12/27/23 13:03 Last Infusion: 12/27/23 13:17 Dose: Infused Documented By: Admin: 12/27/23 12:59 Dose: 400 mls/hr Documented By: Sodium Chloride (Normal Saline 0.9%) 1,000 mls @ 1,000 mls/hr IV BOLUS ONE Stop: 12/27/23 13:48 Last Infusion: 12/27/23 14:02 Dose: Infused Documented By: Admin: 12/27/23 12:59 Dose: 1,000 mls/hr Documented By: Vital Signs Vital signs: Vital Signs - 8 hr 12/27/23 12:14 12/27/23 13:07 12/27/23 14:03 Temperature 97.7 F 97.8 F Pulse Rate 56 L 65 Respiratory Rate 18 16 Blood Pressure 180/76 H 131/62 Pulse Oximetry 97 97 Oxygen Delivery Method Room Air Nasal Cannula Room Air Oxygen Flow Rate 6 MDM - Headache <Cristhian Castillo PA-C - Last Filed: 12/27/23 14:03> MDM Narrative Medical decision making narrative: ED course: This is a 78-year-old female presenting to the emergency department due to acute on chronic cluster headache. Patient physical exam reassuring and no signs or symptoms concerning for acute ischemic or hemorrhagic stroke. No Toradol given as patient states that she was instructed to refrain from using indomethacin. Patient has history of glaucoma no Decadron given. Also history of stent placement and no sumatriptan given. Oxygen therapy was attempted although unable to tolerate more than 6 L via nasal cannula. After oxygen therapy as well as IV Tylenol patient felt ?remarkably better?. We will prescribe Tylenol until she was able to undergo her thyroidectomy and to defer further pain management to the operating surgeon. CC: Headache Complicating co-morbidities: History of coronary artery disease, cluster headaches, glaucoma Data collected from: Previous notes Medical records reviewed: Patient was last seen here 5 years ago due to bilateral arm numbness occasionally. History of coronary artery disease, chronic headaches for the last 40 years, hearing deficit, memory loss. Cardiac workup was ordered and workup was reassuring. This is instructed to follow up with the motion pictures cartoonist for a stress test. Patient has been referred to [facility] of [facility] with the thyromegaly. Family history of thyroid disease. Has some chronic neck discomfort. CT of the neck showed marked enlargement of the thyroid with multiple nodules. Recommended to undergo a total thyroidectomy. Differential considered, but not limited to: Cluster headache, ischemic stroke, hemorrhagic stroke, migraine, Exam documented above, pertinent findings include: Neuro exam reassuring Lab Test results independently reviewed as above. Pertinent findings: None obtained Imaging studies independently reviewed: None obtained Scores Used: None MIPS Elements: None Consultations: None Treatments: Oxygen therapy as well as IV Tylenol Re-evaluations: Patient felt much better after treatment Discussion: Discussed plan with the patient was comfortable with the plan Diagnosis: Cluster headache Disposition: see below, along with detailed discharge instructions that have been reviewed with patient as well as indications for ED re-evaluation and additional outpatient follow up Discharge Plan Departure Patient Disposition: Home Clinical Impression: Cluster headache Activity Restrictions/Additional Instructions: Thank you for coming to the [facility] Emergency Department today. I am glad that we are of his help with the headache. You may 1000mg Tylenol this evening at 7:00 p.m. if your pain continues. I hope your surgery tomorrow goes well. Please return to the emergency department if you develop any patient was drooping, slurred speech, weakness or any other concerning signs or symptoms. I hope you feel better soon. Please follow up with your primary care provider within a week if your symptoms continue. If you do not have a primary care provider please contact the [facility] Resource line at [phone]. They will ask some questions about your medical history and help you get set up with a provider in the community. Prescriptions: New acetaminophen [Tylenol] 325 mg capsule 650 mg PO Q4H PRN (Reason: pain) Qty: 30 0RF No Action atorvastatin 40 mg tablet 40 mg PO BEDTIME Qty: 90 3RF losartan 25 mg tablet 25 mg PO BID Qty: 180 3RF nitroglycerin [Nitrostat] 0.4 mg tablet, sublingual 0.4 mg Sublingual PRN PRN (Reason: Chest Pain) Qty: 30 0RF aspirin 81 MG tablet,delayed release (DR/EC) 81 mg PO MOWEFR Qty: 30 indomethacin 25 mg capsule 25 mg PO 3XD Qty: 270 3RF buspirone 15 mg tablet See Rx Instructions .ROUTE .COMPLEX Qty: 90 3RF Dose Instruction: TAKE ONE-THIRD(1/3) TABLET BY MOUTH IN THE MORNING AND TWO-THIRDS(2/3) TABLET IN THE EVENING DAILY Rx Instructions: TWO-THIRDS(2/3) TABLET IN THE EVENING DAILY CoQ-10 1 cap PO DAILY vitamin E 1 cap PO DAILY Referrals: Estrellita Thomas MD [Primary Care Provider] - Stand Alone Forms: Patient Portal/API ED Sign-out <Romana Veronica MD - Last Filed: 12/27/23 18:35> Cosign ED Attending Cosignature Attestation: I was immediately available in the department for consultation throughout this patient's visit. Romana Veronica MD
[2023-12-27] MEDS: SODIUM CHLORIDE 0.9% 1,000 ML 1000 ML IV (12:59)
[2023-12-27] MEDS: ACETAMINOPHEN IV 1,000 MG/100 ML VIAL 400 MG IV (12:59)
--- NOTE | 2023-12-27 13:08 | PC.NURSE ---
Pt placed on 6L nasal cannula for cluster DAVALOS tx per provider request. Pt unable to tolerate 12L of oxymask per clinical tx suggestion. Pt reports, it's too cold. It's not going to work.
[2023-12-27 14:03] VITALS: BP 131/62; PULSE 65; RESP 16; TEMP 36.6; O2SAT 97
== END 2023-12-27 14:09 | disposition home or self-care (01) ==
PROVIDERS: Emergency Provider Physician Assistant Medical; PCP Student in an Organized Health Care Education/Training Program
DX: G44.029 Chronic cluster headache, not intractable (principal)
CPT/HCPCS: J0136

== ENCOUNTER 2023-12-27 16:53 | Emergency (ER) | payer MEDICARE, SELFPAY ==
[2023-12-27 16:56] VITALS: BP 171/75; PULSE 56; RESP 16; TEMP 36.8; O2SAT 98; BMI 20.9
--- NOTE | 2023-12-27 17:08 | ED_ITS ---
HPI - Headache <Cristhian Castillo PA-C - Last Filed: 12/27/23 19:03> General Chief Complaint: Headache Stated Complaint: returning patient meds wearing off Time Seen by Provider: 12/27/23 17:00 Mode of arrival: Family Vehicle History of Present Illness HPI Narrative: This is a 78-year-old female presents to the emergency department due to returning of her cluster headaches. She was just seen here in the emergency department 3 hours ago for very similar symptoms. Patient was sitting extensive history of cluster headaches causing her to come back for more pain control. She continues to deny any slurred speech, facial drooping, weakness, or any other concerning signs or symptoms. Related Data Home Medications Medication Instructions Recorded Confirmed aspirin 81 mg tablet,delayed 81 mg PO MOWEFR #30 tabs 12/20/15 06/16/23 release CoQ-10 1 cap PO DAILY 11/25/18 06/16/23 vitamin E 1 cap PO DAILY 11/25/18 06/16/23 Previous Rx's Medication Instructions Recorded nitroglycerin 0.4 mg sublingual 0.4 mg sublingual PRN PRN Chest 06/12/22 tablet (Nitrostat) Pain #30 tabs atorvastatin 40 mg tablet 40 mg PO BEDTIME #90 tabs 05/19/23 losartan 25 mg tablet 25 mg PO BID #180 tabs 05/19/23 indomethacin 25 mg capsule 25 mg PO 3XD #270 caps 06/10/23 buspirone 15 mg tablet See Rx Instructions .Route 08/07/23 .COMPLEX #90 tabs acetaminophen 325 mg capsule 650 mg (2 x 325 mg) PO Q4H PRN 12/27/23 (Tylenol) pain #30 caps oxycodone 5 mg capsule 5 mg PO Q8H PRN pain #5 caps 12/27/23 Allergies Allergy/AdvReac Type Severity Reaction Status Date / Time No Known Drug Allergies Allergy Verified 12/27/23 12:14 Review of Systems <Cristhian Castillo PA-C - Last Filed: 12/27/23 19:03> Review of Systems Narrative: GENERAL: Denies chills, fatigue, malaise, fever, sweats. HEENT: Reports headache Denies sinus pain, ear pain, sore throat, difficulty swallowing, dizziness. RESPIRATORY: Denies dyspnea, cough, wheezing, hemoptysis, sputum. CARDIOVASCULAR: Denies chest pain, palpitations, orthopnea, edema, GASTROINTESTINAL: Denies nausea, vomiting, abdominal pain, diarrhea, constipation, melena. : Denies dysuria, frequency, incontinence, hematuria, urinary retention. MUSCULOSKELETAL: denies weakness, joint pain, or bony pain SKIN: Denies rash, skin lesions, or other NEUROLOGIC: Denies weakness, headache, numbness, change in speech, confusion, seizures, incoordination. PSYCHIATRIC: No concerning psychosocial issues. 12 point review of systems is negative except for those stated above Patient History <Cristhian Castillo PA-C - Last Filed: 12/27/23 19:03> Medical History (Updated 12/27/23 @ 19:01 by Cristhian Castillo PA-C) Cluster headache CAD (coronary artery disease) Hearing deficit Headache (~1982) Mumps (~1955) Hearing loss (~1970) Glaucoma (~2009) Colon polyps (~1999) Surgical History Anesthesia Status post placement of bare metal coronary artery stent (~2015) Status post colonoscopy History of tonsillectomy Family History Father Myocardial infarction Sister Age: 78 Breast CA Social History marital status: household members: none lives independently: Yes education level: college occupational status: other (retired) Smoking Status: Never smoker alcohol intake: never substance use type: does not use Smoking Status: Never smoker alcohol intake frequency: 0-2 drinks per day Substance Use Type: does not use Exam <Cristhian Castillo PA-C - Last Filed: 12/27/23 19:03> Narrative Exam Narrative: GENERAL: Well-developed patient, in mild distress. HEAD: Atraumatic. Normocephalic. EYES: Pupils equal round and reactive. Extraocular motions intact. No scleral icterus. No injection or drainage. ENT: Nose without bleeding, purulent drainage. Throat without erythema, tonsillar hypertrophy or exudate. Airway patent. NECK: Trachea midline. Non tender EXTREMITIES: No edema or joint tenderness. NEURO: AOx3. Cranial nerves 2-12 intact SKIN: No rash or erythema of visible areas Initial Vital Signs Initial Vital Signs: Vital Signs Temperature 98.3 F 12/27/23 16:56 Pulse Rate 56 L 12/27/23 16:56 Respiratory Rate 16 12/27/23 16:56 Blood Pressure 171/75 H 12/27/23 16:56 Pulse Oximetry 98 12/27/23 16:56 Oxygen Delivery Method Room Air 12/27/23 16:56 <Madeleine Sevilla MD - Last Filed: 12/27/23 19:49> Initial Vital Signs Initial Vital Signs: Vital Signs Temperature 98.3 F 12/27/23 16:56 Pulse Rate 56 L 12/27/23 16:56 Respiratory Rate 16 12/27/23 16:56 Blood Pressure 171/75 H 12/27/23 16:56 Pulse Oximetry 98 12/27/23 16:56 Oxygen Delivery Method Room Air 12/27/23 16:56 Course <Cristhian Castillo PA-C - Last Filed: 12/27/23 19:03> Orders Ordered: Discontinued Medications Hydromorphone HCl (Hydromorphone 1 Mg Inj) 0.4 mg IV NOW ONE Stop: 12/27/23 18:23 Last Admin: 12/27/23 19:08 Dose: Not Given Documented By: ALICIA Hydromorphone HCl (Hydromorphone 1 Mg Inj) 0.5 mg IM NOW ONE Stop: 12/27/23 18:29 Last Admin: 12/27/23 18:29 Dose: 0.5 mg Documented By: ALICIA Oxycodone HCl (Oxycodone Ir 5 Mg Tablet) 5 mg PO NOW ONE Stop: 12/27/23 17:12 Last Admin: 12/27/23 17:31 Dose: 5 mg Documented By: ALICIA Vital Signs Vital signs: Vital Signs - 8 hr 12/27/23 16:56 12/27/23 19:07 12/27/23 19:08 Temperature 98.3 F Pulse Rate 56 L 68 68 Respiratory Rate 16 16 16 Blood Pressure 171/75 H 145/65 H 145/65 H Pulse Oximetry 98 95 98 Oxygen Delivery Method Room Air Room Air Room Air <Madeleine Sevilla MD - Last Filed: 12/27/23 19:49> Orders Ordered: Discontinued Medications Hydromorphone HCl (Hydromorphone 1 Mg Inj) 0.4 mg IV NOW ONE Stop: 12/27/23 18:23 Last Admin: 12/27/23 19:08 Dose: Not Given Documented By: ALICIA Hydromorphone HCl (Hydromorphone 1 Mg Inj) 0.5 mg IM NOW ONE Stop: 12/27/23 18:29 Last Admin: 12/27/23 18:29 Dose: 0.5 mg Documented By: ALICIA Oxycodone HCl (Oxycodone Ir 5 Mg Tablet) 5 mg PO NOW ONE Stop: 12/27/23 17:12 Last Admin: 12/27/23 17:31 Dose: 5 mg Documented By: ALICIA Vital Signs Vital signs: Vital Signs - 8 hr 12/27/23 16:56 12/27/23 19:07 12/27/23 19:08 Temperature 98.3 F Pulse Rate 56 L 68 68 Respiratory Rate 16 16 16 Blood Pressure 171/75 H 145/65 H 145/65 H Pulse Oximetry 98 95 98 Oxygen Delivery Method Room Air Room Air Room Air MDM - Headache <Cristhian Castillo PA-C - Last Filed: 12/27/23 19:03> MDM Narrative Medical decision making narrative: ED course: This is a 78-year-old female with extensive history of cluster headaches coming in for continued pain control. She was just seen few hours ago in the emergency department by myself and was given IV Tylenol, a L bolus and oxygen therapy which significantly helped improve her headache but it was not returned. Unable to attempt Decadron due to history of glaucoma, sumatriptan d ue to history of cardiac stents, Toradol due to complete thyroidectomy procedure planned for tomorrow which she was instructed not to take indomethacin or any other NSAIDs. Patient not in the correct dosing time table for increased Tylenol and was given p.o. oxycodone after oxygen therapy did not seem to help which did not relieve her symptoms and was then given IM Dilaudid which helped improve her symptoms. Recommended she return home as the pain is now under control and to take Tylenol as needed until surgery tomorrow. We will also prescribe p.o. oxycodone for breakthrough pain control. CC: Headache Complicating co-morbidities: As above, history of cluster headaches Data collected from: Previous notes Medical records reviewed: As above Differential considered, but not limited to: Hemorrhagic/ischemic stroke, migraine, cluster headache Exam documented above, pertinent findings include: Reassuring neuro exam Lab Test results independently reviewed as above. Pertinent findings: None obtained Imaging studies independently reviewed: None obtained Scores Used: None MIPS Elements: None Consultations: None Treatments: P.o. oxycodone and IM Dilaudid Re-evaluations: Patient felt better after pain medications Discussion: Discussed plan with the patient was comfortable with the plan Diagnosis: Cluster headache Disposition: see below, along with detailed discharge instructions that have been reviewed with patient as well as indications for ED re-evaluation and additional outpatient follow up Discharge Plan Departure Patient Disposition: Home Clinical Impression: Cluster headache Activity Restrictions/Additional Instructions: Thank you for coming to the [facility] Emergency Department today. As we discussed please avoid taking the Tylenol until you truly needed if your symptoms come back tonight. You may take a 1000 mg every 6 hours. I have also sent a prescription for oxycodone for any breakthrough pain of the Tylenol is not effective. Please return to the emergency department if you develop any slurred speech, facial drooping, or any other concerning signs or symptoms. I hope you feel better soon. Please follow up with your primary care provider within a week if your symptoms continue. If you do not have a primary care provider please contact the [facility] Resource line at [phone]. They will ask some questions about your medical history and help you get set up with a provider in the community. Prescriptions: New oxycodone 5 mg capsule 5 mg PO Q8H PRN (Reason: pain) Qty: 5 0RF No Action atorvastatin 40 mg tablet 40 mg PO BEDTIME Qty: 90 3RF losartan 25 mg tablet 25 mg PO BID Qty: 180 3RF nitroglycerin [Nitrostat] 0.4 mg tablet, sublingual 0.4 mg Sublingual PRN PRN (Reason: Chest Pain) Qty: 30 0RF aspirin 81 MG tablet,delayed release (DR/EC) 81 mg PO MOWEFR Qty: 30 indomethacin 25 mg capsule 25 mg PO 3XD Qty: 270 3RF buspirone 15 mg tablet See Rx Instructions .ROUTE .COMPLEX Qty: 90 3RF Dose Instruction: TAKE ONE-THIRD(1/3) TABLET BY MOUTH IN THE MORNING AND TWO-THIRDS(2/3) TABLET IN THE EVENING DAILY Rx Instructions: TWO-THIRDS(2/3) TABLET IN THE EVENING DAILY acetaminophen [Tylenol] 325 mg capsule 650 mg PO Q4H PRN (Reason: pain) Qty: 30 0RF CoQ-10 1 cap PO DAILY vitamin E 1 cap PO DAILY Referrals: Estrellita Thomas MD [Primary Care Provider] - Stand Alone Forms: Patient Portal/API ED Sign-out <Madeleine Sevilla MD - Last Filed: 12/27/23 19:49> Cosign ED Attending Cosignature Attestation: I did not see this patient. I was available all times for consultation.
[2023-12-27] MEDS: OXYCODONE IR 5 MG TABLET PO (17:31)
--- NOTE | 2023-12-27 17:34 | PC.NURSE ---
Placed on NRB @ 12L per provider verbal orders, to re-assess at 15minutes.
[2023-12-27] MEDS: HYDROMORPHONE 1 MG INJ 0.5 MG IM (18:29)
[2023-12-27 19:07] VITALS: BP 145/65; PULSE 68; RESP 16; O2SAT 95
[2023-12-27 19:08] VITALS: BP 145/65; PULSE 68; RESP 16; O2SAT 98
== END 2023-12-27 19:08 | disposition home or self-care (01) ==
PROVIDERS: Emergency Provider Physician Assistant Medical; PCP Student in an Organized Health Care Education/Training Program
DX: G44.029 Chronic cluster headache, not intractable (principal)
CPT/HCPCS: 96365; 96372; 99283; 99284; J0136; J1170

== ENCOUNTER → 2024-03-02 07:41 | Outpatient (CLI) | payer MEDICARE, SELFPAY ==
[2024-03-02 09:59] LABS: Thyroid Stimulating Hormone 1.49 uIU/mL (0.47-4.68)
== END ==
PROVIDERS: PCP Student in an Organized Health Care Education/Training Program; Referring Provider Student in an Organized Health Care Education/Training Program; Visit Provider Student in an Organized Health Care Education/Training Program
DX: E03.9 Hypothyroidism, unspecified (principal); Z98.890 Other specified postprocedural states; Z90.89 Acquired absence of other organs
CPT/HCPCS: 36415; 84439; 84443

== ENCOUNTER → 2024-07-20 07:54 | Outpatient (CLI) | payer MEDICARE, SELFPAY ==
[2024-07-20 08:57] LABS: Free T4, Direct Thyroxine 1.28 ng/dL (0.78-2.19)
[2024-07-20 09:12] LABS: Thyroid Stimulating Hormone 3.01 uIU/mL (0.47-4.68)
== END ==
PROVIDERS: PCP Student in an Organized Health Care Education/Training Program; Referring Provider Student in an Organized Health Care Education/Training Program; Visit Provider Student in an Organized Health Care Education/Training Program
DX: E04.9 Nontoxic goiter, unspecified (principal); E04.1 Nontoxic single thyroid nodule
CPT/HCPCS: 36415; 84439; 84443

== ENCOUNTER → 2024-08-03 11:49 | Outpatient (CLI) | payer MEDICARE, SELFPAY ==
--- NOTE | 2024-08-03 11:50 | DI.MG.S_ITS ---
MM screening mammo BI: 08/03/2024. BI-RADS: 2 CLINICAL: 79-year old female for bilateral screening mammogram. Tyrer-Cuzick lifetime risk of 6.2%. Current reported family history of breast cancer: sister. PRIOR EXAMS 07/16/2023, 01/02/2023, 07/03/2022, 06/09/2022, 06/06/2021, 05/15/2020, 05/12/2019, 04/14/2019, 03/11/2018, 12/18/2016, 11/09/2014. MAMMOGRAPHY TECHNIQUE: 2D and 3D (tomosynthesis) digital mammographic views obtained, with additional images as needed for full coverage. Current study was also evaluated with a Computer Aided Detection (CAD) system. DENSITY C. The breasts are heterogeneously dense, which may obscure small masses. MAMMOGRAPHY FINDINGS Bilateral: Benign-appearing calcifications noted. There are no suspicious masses, calcifications, or other findings in the breast. IMPRESSION: * No evidence of malignancy with benign findings. RECOMMENDATIONS Bilateral * Annual screening mammography. OVERALL ASSESSMENT CATEGORY BI-RADS-2: Benign. [employer] recommends annual screening mammography beginning at age 40 for women with average risk of breast cancer. ELECTRONICALLY SIGNED: Diane Monroy M.D. on 08/03/2024 at 07:59:00 PM PT Interpreting Station ID: [id number]
== END ==
PROVIDERS: PCP Student in an Organized Health Care Education/Training Program; Referring Provider Student in an Organized Health Care Education/Training Program; Visit Provider Student in an Organized Health Care Education/Training Program
DX: Z12.31 Encounter for screening mammogram for malignant neoplasm of breast (principal); Z80.3 Family history of malignant neoplasm of breast; R92.333 Mammographic heterogeneous density, bilateral breasts
CPT/HCPCS: 77063; 77067

== ENCOUNTER → 2025-02-22 07:51 | Outpatient (CLI) | payer MEDICARE, SELFPAY ==
[2025-02-22 09:18] LABS: Free T4, Direct Thyroxine 1.50 ng/dL (0.78-2.19)
[2025-02-22 09:32] LABS: Thyroid Stimulating Hormone 2.61 uIU/mL (0.47-4.68)
== END ==
PROVIDERS: PCP Student in an Organized Health Care Education/Training Program; Referring Provider Student in an Organized Health Care Education/Training Program; Visit Provider Student in an Organized Health Care Education/Training Program
DX: E03.9 Hypothyroidism, unspecified (principal)
CPT/HCPCS: 36415; 84439; 84443